=== PATIENT | male | born 1955 | race Caucasian/White ===

== ENCOUNTER 2016-11-16 12:01 | Inpatient (IN) | payer OTHER ==
[2016-11-16] MEDS ORDERED: RX INFO: IV CONTRAST WAS GIVEN 1 EACH MISC MISCELLANE PRN ×2 (12:30→17:51)
[2016-11-16] MEDS ORDERED: SODIUM CHLORIDE 0.9% 500 ML IV ONE (12:30)
--- NOTE | 2016-11-16 12:38 | ED ---
General Adult HPI - General Source: patient, family, RN notes reviewed Mode of arrival: ambulatory Limitations: no limitations <Faraz Humphries - Last Filed: 11/16/16 15:08> <Dev Nolan - Last Filed: 11/16/16 15:11> - General Chief complaint: ENT Stated complaint: Sore throat Time Seen by Provider: 11/16/16 12:24 - History of Present Illness Initial comments: 61-year-old male presents emergency Department with complaints of sore throat, difficulty swallowing. Patient states that he did having more difficulty increased pain the last 3 months. Patient states there is also loss of WEIGHT OVER 20 POUNDS. PATIENT STATES THAT HE IS A HEAVY SMOKER AND CONTINUES TO SMOKE. DENIES ANY CHEST PAIN OR INCREASED SHORTNESS BREATH THIS TIME. PATIENT DENIES FEVER, CHILLS, HEADACHE OR DIZZINESS. PATIENT STATES HE HAS GENERALIZED MALAISE, FATIGUE. PATIENT STATES HE DOES NOT HAVE A PRIMARY CARE PHYSICIAN HAS NOT SEEN ANYBODY FOR THIS. PATIENT STATES SHE ALSO NOTICED CHANGE IN HIS VOICE AND WHEN SHE SOUNDS VERY CONGESTED. (Faraz Humphries) - Related Data Home Medications Medication Instructions Recorded Confirmed No Known Home Medications [No 11/16/16 11/16/16 Known Home Medications] Allergies Allergy/AdvReac Type Severity Reaction Status Date / Time No Known Allergies Allergy Verified 11/16/16 13:13 Review of Systems ROS Other: All systems not noted in ROS Statement are negative. <Faraz Humphries - Last Filed: 11/16/16 15:08> ROS Other: All systems not noted in ROS Statement are negative. <Dev Nolan - Last Filed: 11/16/16 15:11> ROS Statement: Those systems with pertinent positive or pertinent negative responses have been documented in the HPI. Past Medical History Past Medical History: No Reported History History of Any Multi-Drug Resistant Organisms: None Reported Past Surgical History: No Surgical Hx Reported Past Psychological History: No Psychological Hx Reported Smoking Status: Current every day smoker Past Alcohol Use History: Daily Past Drug Use History: Marijuana <Faraz Humphries - Last Filed: 11/16/16 15:08> General Exam Limitations: no limitations General appearance: alert, in no apparent distress, cachectic Head exam: Present: atraumatic, normocephalic, normal inspection Eye exam: Present: normal appearance, PERRL, EOMI. Absent: scleral icterus, conjunctival injection, periorbital swelling ENT exam: Present: mucous membranes moist, TM's normal bilaterally, normal external ear exam. Absent: normal exam, normal oropharynx (Coating noted on the tongue) Neck exam: Present: normal inspection, full ROM. Absent: tenderness, meningismus, lymphadenopathy Respiratory exam: Present: normal lung sounds bilaterally. Absent: respiratory distress, wheezes, rales, rhonchi, stridor Cardiovascular Exam: Present: regular rate, normal rhythm, normal heart sounds. Absent: systolic murmur, diastolic murmur, rubs, gallop, clicks Neurological exam: Present: alert, oriented X3, CN II-XII intact Skin exam: Present: warm, dry, intact, normal color. Absent: rash <Faraz Humphries - Last Filed: 11/16/16 15:08> Course <Faraz Humphries - Last Filed: 11/16/16 15:08> <Dev Nolan - Last Filed: 11/16/16 15:11> Vital Signs 11/16/16 12:17 Temperature 98.9 F Pulse Rate 91 Respiratory 18 Rate Blood Pressure 135/68 O2 Sat by Pulse 98 Oximetry - Reevaluation(s) Reevaluation #1: 11/16/16 15:10 Patient reevaluated by myself, Dr. Nolan. Patient is unable swallow solid food however is able to swallow liquid. No dyspnea. Oral exam is somewhat difficult however tongue does appear elevated on the right side. There does also seems of the right upper neck. Case was discussed in detail with Dr. George, who will admit for medical call. Patient and family updated on results and plan. Consult will be placed for ENT and oncology. (Dev Nolan) Medical Decision Making - Lab Data Result diagrams: 11/16/16 13:00 11/16/16 13:00 <Faraz Humphries - Last Filed: 11/16/16 15:08> - Lab Data Result diagrams: 11/16/16 13:00 11/16/16 13:00 <Dev Nolan - Last Filed: 11/16/16 15:11> - Lab Data Lab Results 11/16/16 11/16/16 11/16/16 Range/Units 13:00 13:00 13:00 WBC 5.9 (3.8-10.6) k/uL RBC 4.24 L (4.30-5.90) m/uL Hgb 13.0 (13.0-17.5) gm/dL Hct 40.8 (39.0-53.0) % MCV 96.2 (80.0-100.0) fL MCH 30.6 (25.0-35.0) pg MCHC 31.8 (31.0-37.0) g/dL RDW 16.3 H (11.5-15.5) % Plt Count 414 (150-450) k/uL Neutrophils % 80 % Lymphocytes % 9 % Monocytes % 8 % Eosinophils % 1 % Basophils % 1 % Neutrophils # 4.7 (1.3-7.7) k/uL Lymphocytes # 0.6 L (1.0-4.8) k/uL Monocytes # 0.5 (0-1.0) k/uL Eosinophils # 0.0 (0-0.7) k/uL Basophils # 0.0 (0-0.2) k/uL Anisocytosis Slight PT 12.1 H (9.0-12.0) sec INR 1.2 (<1.1) APTT 25.6 (22.0-30.0) sec Sodium 147 H (137-145) mmol/L Potassium 4.8 (3.5-5.1) mmol/L Chloride 109 H (98-107) mmol/L Carbon Dioxide 26 (22-30) mmol/L Anion Gap 12 mmol/L BUN 11 (9-20) mg/dL Creatinine 0.80 (0.66-1.25) mg/dL Est GFR (MDRD) Af Amer >60 (>60 ml/min/1.73 sqM) Est GFR (MDRD) Non-Af >60 (>60 ml/min/1.73 sqM) Glucose 84 (74-99) mg/dL Calcium 10.1 (8.4-10.2) mg/dL Disposition <Faraz Humphries - Last Filed: 11/16/16 15:08> <Dev Nolan - Last Filed: 11/16/16 15:11> Clinical Impression: Oral cancer, Esophageal cancer, Dysphagia Disposition: ADMITTED IP TO THIS [facility] Condition: Poor Referrals: None,Stated [Primary Care Provider] - 1-2 days
[2016-11-16 14:40] LABS: Anisocytosis Slight; Basophils % (A) 1 %; CHCM 32.4; Eosinophils % (A) 1 %; HCT 40.8 % (39.0-53.0); HDW 2.52; Luc # (Auto) 0.14; Luc % (Auto) 2; Lymphocytes # (A) 0.6 k/uL (1.0-4.8); Lymphocytes % (A) 9 %; MCH 30.6 pg (25.0-35.0); MCHC 31.8 g/dL (31.0-37.0); MCV 96.2 fL (80.0-100.0); Monocytes # (A) 0.5 k/uL (0-1.0); Monocytes % (A) 8 %; Neutrophils # (A) 4.7 k/uL (1.3-7.7); Neutrophils % (A) 80 %; RBC 4.24 m/uL (4.30-5.90); RDW 16.3 % (11.5-15.5); WBC 5.9 k/uL (3.8-10.6); WBC (Perox) 5.73
--- NOTE | 2016-11-16 14:49 | CT ---
EXAMINATION TYPE: CT neck chest w con DATE OF EXAM: 11/16/2016 2:27 PM COMPARISON: NONE HISTORY: 61-year-old male complains of dysphagia, sore throat, and weight loss. TECHNIQUE: Contiguous axial scanning of the neck and chest performed with IV Contrast, patient inject ed with 100 mL of Omnipaque 300. Coronal/sagittal reconstructions performed. CT DLP: 557.9 mGycm Automated exposure control for dose reduction was used. FINDINGS: NECK: Visualized intracranial structures and orbits and globes appear clear. Cerumen left external auditory canal. Leftward nasal septal deviation. Partial opacification inferior right mastoid air cells. There is opacification of the maxillary sinus es with reactive wolf-osteogenesis and air-fluid levels. Nasopharynx appears clear. However, there is mucosal space abnormality with mucosal space irregularit y and possible soft tissue erosion which extends from the right tonsillar pillar along the medial mar gin of the right pterygoids, and with an irregular soft tissue rind along the base of the right base of the tongue extending inferiorly along the mucosal space down to the level of the right hypopharynx with effacement of the right piriform sinus, distortion and leftward displacement of the epiglottis and leftward displacement of the false cords. This abnormality begins on axial image 64 and extends d own to axial image 40. Abnormal soft tissue extends posteriorly into the carotid space at the level o f the angle of the mandible, axial image 53 measuring up to 5.3 cm AP dimension at this level. Abnorm al soft tissue invades the floor the mouth, axial image 46. Abnormality spans up to 8.2 cm craniocaud al. The true vocal folds appear maintained. The tracheal column is clear. Advanced spondylotic change. There is bulky anterior spondylosis in the cervical spine. CHEST: Patient is cachectic. Heart is normal size without pericardial effusion. Coronary vessel calcifications are present in deloris rkable for coronary disease. Mild atherosclerotic arch calcifications with conventional arch vessel branching anatomy. No thoracic lymphadenopathy seen. Evaluation of the lungs shows emphysema and mild diffuse bronchial wall thickening compatible with br onchitis. No consolidation or pleural effusion. In the visualized upper abdomen, there is either cystic replacement of the left kidney with cysts erasmo suring up to 10.1 cm versus severe hydronephrosis and advanced renal cortical thinning. A 9 mm calcif ication is seen probably in the left renal collecting system. This area is only partially visualized. Bones: No osseous destructive process. Normal variant of the sternal foramina. COMBINED IMPRESSION: NECK: 1. Extensive ulcerating mucosal space neoplasm on the right. This extends superiorly from the tonsill ar pillar down inferiorly into the right piriform sinus region up to 8.2 cm craniocaudal. There is in volvement of the floor of the mouth, right upscale security officer space, and carotid space with distortion and le ftward displacement of the epiglottis and false vocal folds. No airway compromise. CHEST: 1. COPD without acute pulmonary process.
[2016-11-16 14:52] LABS: INR 1.2 (<1.1); Partial Thromboplastin Time 25.6 sec (22.0-30.0); Prothrombin Time 12.1 sec (9.0-12.0)
[2016-11-16 14:53] LABS: Anion Gap 12 mmol/L; Blood Urea Nitrogen 11 mg/dL (9-20); Calcium 10.1 mg/dL (8.4-10.2); Carbon Dioxide 26 mmol/L (22-30); Chloride 109 mmol/L (98-107); Glucose 84 mg/dL (74-99); Non-African American GFR(MDRD) >60 (>60 ml/min/1.73 sqM); Potassium 4.8 mmol/L (3.5-5.1); Sodium 147 mmol/L (137-145)
[2016-11-16] MEDS ORDERED: ONDANSETRON 4 MG/2 ML VIAL IVP PRN (15:09)
[2016-11-16] MEDS ORDERED: NALOXONE 0.4 MG/ML 1 ML VIAL IV PRN (15:09)
[2016-11-16] MEDS ORDERED: LORazepam 2 MG/ML SYRINGE IV PRN (15:09)
[2016-11-16] MEDS: SODIUM CHLORIDE 0.9% 1,000 ML IV SCH (15:49)
--- NOTE | 2016-11-16 17:44 | P.PCN ---
Date of Procedure: 11/16/16 Preoperative Diagnosis: Dysphasia, trismus Postoperative Diagnosis: Same with right tonsillar ulcerative lesion and parapharyngeal mass Procedure(s) Performed: Flexible nasopharyngeal laryngoscopy Anesthesia: none Surgeon: Ravindra Nelson Pathology: none sent Condition: stable Disposition: PACU Indications for Procedure: This patient has over 2 months progressive dysphagia and odontophagia and trismus. A lesion was noted on the right side in the emergency room and the patient's been admitted for evaluation. Patient has lost 20 pounds in the last 2 months. He is unable to keep up with nutritional status. Operative Findings: Patient has a right tonsillar mass with associated parapharyngeal space involvement and trismus Description of Procedure: An EF type GP nasopharyngoscope was placed into the patient's nose with care to avoid any trauma to the nasal mucosa. We followed the floor the nose into the nasopharynx and oropharynx and hypopharynx and did a complete and thorough examination of these areas. The base of tongue [place] cords epiglottis etc. all appeared to be unremarkable. The patient did have an ulcerative lesion of the right tonsillar area with a mass of the parapharyngeal space on the right side., This is suspicious for malignancy.
--- NOTE | 2016-11-16 17:51 | P.GSCN ---
History of Present Illness Consult date: 11/16/16 Reason for Consult: Severe dysphagia and weight loss of 20 pounds in 2 months. Trismus is noted Requesting physician: Brad George History of present illness: This is a 61-year-old white male who has had 2 months of persistent and progressive sore throat, trismus, weight loss and severe dysphasia. The pain is quite intense and is having a hard time swallowing. He is clearly not keeping up with his weight. He now weighs 52 kg. He's lost over 20 pounds in 2 months. He's got a long-standing history of smoking and drinking. He has a [id number] history of smoking and drinks over 5 drinks per day. His pain is located in the right submandibular region with associated trismus and describes the pain as intense L aching but sharp at times and is always present. Made worse by swallowing. Nothing takes the pain away. Review of Systems - Constitutional Reports anorexia, Reports malaise, Reports weakness - EENT Eyes: denies blurred vision, denies bulging eye Ears: right: decreased hearing Ears, nose, mouth and throat: Reports mouth pain, Reports neck fullness/pressure , Reports odynophagia, Reports swelling in mouth - Cardiovascular Denies chest pain - Respiratory Denies congestion - Gastrointestinal Reports loss of appetite, Denies abdominal pain - Genitourinary Denies hematuria - Musculoskeletal Denies fractures - Integumentary Reports dryness, Denies foot/leg ulcers - Neurological Reports balance difficulties, Denies ataxia - Psychiatric Reports change in appetite - Endocrine Denies deepening of the voice - Hematologic/Lymphatic Denies easy bleeding - Allergic/Immunologic Denies allergic rhinitis Past Medical History Past Medical History: No Reported History History of Any Multi-Drug Resistant Organisms: None Reported Past Surgical History: No Surgical Hx Reported Past Psychological History: No Psychological Hx Reported Smoking Status: Current every day smoker Past Alcohol Use History: Daily Past Drug Use History: Marijuana Medications and Allergies Home Medications Medication Instructions Recorded Confirmed Type No Known Home Medications [No 11/16/16 11/16/16 History Known Home Medications] Allergies Allergy/AdvReac Type Severity Reaction Status Date / Time No Known Allergies Allergy Verified 11/16/16 13:13 Surgical - Exam Osteopathic Statement: *. No significant issues noted on an osteopathic structural exam other than those noted in the History and Physical/Consult. Vital Signs Temp Pulse Resp BP Pulse Ox 98.9 F 91 18 135/68 98 11/16/16 12:17 11/16/16 12:17 11/16/16 12:17 11/16/16 12:11/16/16 12:17 - General cachectic, chronically ill - Eyes PERRL, normal ocular movement - ENT Patient has male pattern baldness. Head is normocephalic the face is symmetric. There is no abnormal movements. There is no tenderness to the sinuses are mastoids. There is no nodules or eruptions or parasites on scalp. Your well-formed canals are clear the tympanic membranes are without bulging or retraction. Nose is patent. Mouth and throat-a right tonsillar ulcerative lesion is noted with parapharyngeal involvement. Neck shows some fullness and tenderness to the right submandibular region and region #2 normal pinna, normal nares, normal mucosa - Neck Fullness to the right neck lymphadenopathy is appreciated no masses, no no lymphadectomy - Respiratory normal expansion, clear to percussion - Musculoskeletal normal gait - Psychiatric oriented to time, oriented to person, oriented to place, speech is normal Results - Labs 11/16/16 13:00 11/16/16 13:00 Assessment and Plan (1) Abnormal weight loss Status: Acute (2) Tonsillar mass Status: Acute Plan: This patient has an ulcerative mass of the right tonsil and parapharyngeal region with extension to the pterygoid musculature causing associated trismus. This is very suspicious for possible malignancy. I'm recommending a CAT scan of the neck and chest along with a triple endoscopy and biopsy along with a fine -needle aspiration of this right neck mass. All risks, benefits, and alternative therapies were discussed in detail. Consent was obtained and all questions were answered. I'm also recommending a feeding tube as this patient is unable to keep up with his feedings. We will arrange the triple endoscopy and biopsy on and allow Tuesday to obtain CAT scan imaging dietary consultation and a possible feeding tube. I've explained all this to the patient. All risks, benefits, and alternative therapies regarding the triple endoscopy and feeding tube were discussed. A consent was obtained and all questions were answered. I did tell him that this important that he contact his family to make arrangements for travel and treatment if this indeed comes back as a malignancy. Time with Patient: Greater than 30
[2016-11-16] MEDS: MORPHINE SULFATE 4 MG/ML SYRINGE IV PRN (18:00)
[2016-11-17] MEDS: SODIUM CHLORIDE 0.9% 1,000 ML IV SCH ×2 (05:42→19:47)
--- NOTE | 2016-11-17 08:52 | HP ---
DATE OF ADMISSION: 11/16/2016 CHIEF COMPLAINT: Pain in the throat for three months. HISTORY OF PRESENT ILLNESS: This is the first admission for this 61-year-old white male. He started having a definite sore throat, pain in the neck and difficulty swallowing several months ago. He has lost 20 pounds when he came to the emergency room where he was identified on CAT scan to have a large hypopharyngeal mass. He has had no hemoptysis, he smokes and drinks heavily. REVIEW OF SYSTEMS: He has had no headaches, change in vision or hearing, shortness of breath, hemoptysis, heart disease, hypertension, murmurs, abdominal pain, vomiting, hematemesis, melena, hematochezia, jaundice, hematuria, frequency, urgency, renal disease, diabetes, etc. Past medical history reveals he has had no surgery, allergies and he is not on any medications. Smokes about a pack of cigarettes a day. Admits to 4 or 5 beers a day. PHYSICAL EXAMINATION: VITAL SIGNS: Blood pressure is 111/64 with a pulse of 75, respirations 35 and he is afebrile. GENERAL: He appeared to be chronically ill, dehydration, malnourished and slightly cachectic. HEENT: Head, ears, eyes, nose, mouth, and throat are otherwise normal as well as could be seen. The oral exam was not carried out because it was examined by ENT. He has mass in the right side of the neck. Chest is clear. CARDIAC: Normal sinus rhythm. ABDOMEN: Soft, nontender. EXTREMITIES: Normal. IMPRESSION: 1. Pharyngeal carcinoma, location unknown. 2. Chronic obstructive pulmonary disease. 3. Alcohol abuse. PLAN: 1. Bed rest. 2. IV fluids. 3. ENT consult and then probably have him further evaluated by oncology and radiation therapy. He was told it was likely this neoplasm.
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
[2016-11-17] MEDS: MORPHINE SULFATE 4 MG/ML SYRINGE IV PRN ×2 (10:38→19:45)
--- NOTE | 2016-11-17 16:07 | PN ---
DATE OF SERVICE: 11/17/2016 CHIEF COMPLAINT: Weight loss, pain in the throat, and mass in the right side of the neck. HISTORY OF PRESENT ILLNESS: This gentleman is about the same. He is still uncomfortable. It is planned that he will have a PEG tube placed in the next day or two and then he will undergo biopsy of the throat lesion. PHYSICAL EXAMINATION: Breath sounds are poor. Cardiac exam is normal. Abdomen is soft. IMPRESSION: 1. 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 2. Chronic obstructive pulmonary disease. 3. Alcoholism. PLAN: Await further studies, including biopsy, as well as placement of PEG tube.
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
[2016-11-18] MEDS: SODIUM CHLORIDE 0.9% 1,000 ML IV SCH (00:05)
[2016-11-18] MEDS: MORPHINE SULFATE 4 MG/ML SYRINGE IV PRN ×4 (00:27→22:32)
[2016-11-18] MEDS: LACTATED RINGERS 1,000 ML IV SCH ×2 (02:21→12:36)
[2016-11-18] MEDS ORDERED: DEXAMETHASONE SOD PHOS (MDV) 100 MG/10 ML VIAL ONE (08:44)
[2016-11-18] MEDS ORDERED: LIDOCAINE 1% INJ 10MG/ML (20 ML MDV) ONE (08:44)
[2016-11-18] MEDS ORDERED: fentaNYL (PF) 50 MCG/ML 2 ML AMP ONE (08:44)
[2016-11-18] MEDS ORDERED: PHENYLEPHRINE-0.9% NACL SYG 1 MG/10 ML SYRINGE ONE (08:44)
[2016-11-18] MEDS ORDERED: MIDAZOLAM 2 MG/2 ML VIAL ONE (08:44)
[2016-11-18] MEDS ORDERED: PROPOFOL 10 MG/ML 20 ML VIAL IV ONE (08:44)
[2016-11-18] MEDS ORDERED: SUCCINYLCHOLINE CHLORIDE VIAL 200 MG/10 ML VIAL IV ONE (08:44)
[2016-11-18] MEDS ORDERED: IV FLUID CONTINUATION 1,000 ML IV ONE (17:21)
[2016-11-18] MEDS ORDERED: ONDANSETRON 4 MG/2 ML VIAL IVP ONE (18:13)
[2016-11-18] MEDS ORDERED: DEXAMETHASONE SOD PHOS (MDV) 100 MG/10 ML VIAL IVP ONE (18:16)
--- NOTE | 2016-11-18 19:35 | P.OP ---
Date of Procedure: 11/18/16 Preoperative Diagnosis: 8.2 cm right oral pharyngeal mass i.e. retromolar trigone with extension into the soft palate and base of tongue involving the mandible Postoperative Diagnosis: Same Procedure(s) Performed: Direct microscopic laryngoscopy and biopsy Anesthesia: REX Surgeon: Ravindra Nelson Estimated Blood Loss (ml): 10 Pathology: other (Right throat mass) Condition: stable Disposition: PACU Indications for Procedure: This patient presented with dysphagia and trismus. He was found to have a large mass of the right oral pharyngeal region. Biopsy is recommended. Direct microscopic laryngoscopy is recommended. He scheduled for a computed tomography scan of the chest so therefore we decided to proceed forward with just a laryngoscopy and biopsy. Operative Findings: Patient has a large 8 cm mass which appears to have started in the retromolar trigone region and has extended into the base of the tongue superiorly into the soft palate and is in close approximation with the mandible. This is a very large bulky tumor. Description of Procedure: This patient underwent a general inhalation anesthetic and a Jako laryngoscope was placed in the patient's mouth with care to avoid any trauma to the gums. A gum guard was placed. The Jako laryngoscope was inserted and the patient's mouth with care to avoid any trauma to the lips or gums. The entire oropharynx and hypopharynx was evaluated. Reevaluated the base the tongue [place] cords piriform sinus lateral pharynx etc. This patient has and alternative mass extending from the soft palate down along the retromolar trigone area into the base of tongue. This most likely started in either the tonsil or the retromolar trigone region. Resembled a squamous cell carcinoma. Biopsies were taken and instrumentation was removed. The patient tolerated this well. We're awaiting the results of the pathology report.
[2016-11-19] MEDS: MORPHINE SULFATE 4 MG/ML SYRINGE IV PRN ×5 (01:48→23:36)
--- NOTE | 2016-11-19 07:19 | PN ---
CHIEF COMPLAINT: ( ) of the tonsil. HISTORY OF PRESENT ILLNESS: This gentleman is doing reasonably well, but he is still having a lot of discomfort in his throat. He is going down for a biopsy today. PHYSICAL EXAM: He remains asthenic and chronically ill in appearance. Chest is fairly clear and breath sounds are heard on both sides. Cardiac exam is normal. IMPRESSION: 1. Cancer of the tonsil. 2. Chronic obstructive pulmonary disease. PLAN: 1. Biopsy of the lesion today. 2. Make sure he is evaluated by hematology/oncology and radiation therapy. 3. He should be placed on an inpatient status.
[2016-11-19 09:02] LABS: Anion Gap 9 mmol/L; Blood Urea Nitrogen 8 mg/dL (9-20); Calcium 9.4 mg/dL (8.4-10.2); Carbon Dioxide 26 mmol/L (22-30); Chloride 108 mmol/L (98-107); Glucose 125 mg/dL (74-99); Non-African American GFR(MDRD) >60 (>60 ml/min/1.73 sqM); Potassium 4.4 mmol/L (3.5-5.1); Sodium 143 mmol/L (137-145)
[2016-11-19] MEDS: SODIUM CHLORIDE 0.9% 1,000 ML IV SCH ×3 (10:37→23:42)
[2016-11-19] MEDS: LACTATED RINGERS 1,000 ML IV SCH (10:39)
[2016-11-19] MEDS ORDERED: ceFAZolin 2 GM in SODIUM CHLORIDE 0.9% 100 ML IVPB ONE (11:00)
[2016-11-19] MEDS ORDERED: GLYCOPYRROLATE 0.2 MG/ML 2 ML VIAL ONE (12:50)
[2016-11-19] MEDS ORDERED: PROPOFOL 10 MG/ML 20 ML VIAL IV ONE (12:50)
[2016-11-19] MEDS ORDERED: LIDOCAINE 1% INJ 10MG/ML (20 ML MDV) ONE (12:50)
[2016-11-19] MEDS ORDERED: IV FLUID CONTINUATION 900 ML IV ONE (13:01)
--- NOTE | 2016-11-19 13:20 | P.PCN ---
Date of Procedure: 11/19/16 Procedure(s) Performed: Brief history: Patient is a 61-year-old white male, scheduled for an EGD with PEG tube placement today. He was diagnosed with tonsillar mass for which she underwent direct laryngoscopy with biopsies yesterday. The patient has been complaint of dysphagia and able to swallow liquids and soft diet. Procedure performed: EGD with PEG tube placement Preoperative diagnosis: Recently diagnosed tonsillar cancer, PEG tube placement for nutrition IV sedation by anesthesia Procedure: After informed consent was obtained with the patient as well as the family the patient was brought into the endoscopy unit. IV conscious sedation was administered by anesthesia under continuous monitoring. The Olympus GF 160 video endoscope was inserted into the mouth and there was a large tonsillar mass identified. The scope was advanced into the pyriform sinus and esophagus intubated without any difficulty and was gradually advanced to the stomach and duodenum. The bulb and second part of the duodenum was visualized which appeared normal. The scope at this time was withdrawn to the stomach adequately insufflated with air. Adequate transillumination was achieved onto the anterior abdominal wall. At the site of adequate transillumination and maximal finger indentation, on the anterior abdominal wall, this area was sterilely prepped and draped. One percent Xylocaine was infiltrated into the skin and a small incision was made. Trocar and cannula was passed through the incision into the stomach cavity. The trocar was removed. Guidewire was passed through the cannula into the stomach cavity which was held by the snare that was passed through the scope. The guidewire along with the scope was gently withdrawn from the stomach esophagus out of the mouth. A 20-[employer] PEG tube was passed over the guidewire and was gently advanced into the mouth and esophagus and stomach. With gentle traction the guidewire along with the PEG tube was pulled from the anterior abdominal wall until the internal bumper appeared to be in secure position. Repeat EGD was performed and the esophagus intubated without any difficulty and was advanced into the stomach. The internal bumper appeared to be in secure position. The visualized portions of the antrum body cardia and fundus of the stomach appeared normal. The esophagus was carefully examined as the scope was gradually being withdrawn which appeared normal. At this time external bumper was placed on the PEG tube closer to the anterior abdominal wall at 3 cm gigi. The patient tolerated the procedure well. Impression: Successful 20-[employer] PEG tube placement as described above. Large tonsillar mass. Recommendations: Findings of this examination were discussed with the patient's family. The patient will be started on tube feeds tomorrow. Post-PEG tube orders were written.
--- NOTE | 2016-11-19 14:15 | PN ---
CHIEF COMPLAINT: CA of the right tonsil. HISTORY OF PRESENT ILLNESS: The gentleman is going down today for a PEG tube. PHYSICAL EXAM: Difficult to understand and he swelling and pain in the neck particularly on the right. Breath sounds are diminished throughout. IMPRESSION: Cancer of the right tonsil. PLAN: 1. PEG tube today. 2. Start making arrangements for discharge and follow up for possible treatment modalities.
[2016-11-20] MEDS: MORPHINE SULFATE 4 MG/ML SYRINGE IV PRN ×4 (06:30→20:33)
--- NOTE | 2016-11-20 10:13 | PN ---
DATE OF SERVICE: 11/20/2016 The patient is a 61-year-old white male who was diagnosed with tonsillar cancer and he presents with dysphagia 2 days ago. He underwent an upper endoscopy with a PEG tube placement yesterday and this morning he is feeling better. He denies any abdominal pain. He reports no nausea and vomiting. Presently on clear liquid diet, tolerating well. On physical examination, he appears comfortable in no apparent distress. Vital signs are stable. Blood pressure is 146/71, pulse is 76, temperature 98.1. HEENT examination unremarkable. Conjunctivae pink. Sclerae anicteric. Oral cavity, no lesions. NECK: No JVD or lymph node enlargement. Chest was clear to auscultation. HEART: Regular rate and rhythm. ABDOMEN: Soft. Bowel sounds are positive. The PEG tube appears to be in good position and there is no induration around the PEG site, it is nontender. EXTREMITIES: No pedal edema. SKIN: No rashes. NEURO: Alert and oriented x3. No focal deficits. IMPRESSION: 1. Recently diagnosed tonsillar cancer. 2. Dysphagia, status post EGD with PEG tube placement yesterday. The patient doing well. RECOMMENDATIONS: 1. Continue with a clear liquid diet. 2. We can start using the PEG tube for feeds from today as per dietary recommendations.
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
--- NOTE | 2016-11-20 13:12 | PN ---
CHIEF COMPLAINT: CA of the throat. HISTORY OF PRESENT ILLNESS: This gentleman had his PEG tube placed yesterday. He is doing fairly well. He will be ready for discharge the first of the week. PHYSICAL EXAM: Breath sounds are heard on both sides. Cardiac exam is normal. ABDOMEN: Soft, nontender. PEG tube is in place. IMPRESSION: 1. Cancer of the right tonsil. 2. Chronic obstructive pulmonary disease. PLAN: Keep working on discharge. Make sure that he is seen by Oncology and Radiation Therapy.
[2016-11-20] MEDS: LACTATED RINGERS 1,000 ML IV SCH (13:37)
[2016-11-20] MEDS: SODIUM CHLORIDE 0.9% 1,000 ML IV SCH (13:37)
[2016-11-21] MEDS: MORPHINE SULFATE 4 MG/ML SYRINGE IV PRN ×5 (00:27→21:52)
[2016-11-21 01:27] LABS: Glucose,Whole Blood 109 mg/dL (75-99)
[2016-11-21] MEDS: SODIUM CHLORIDE 0.9% 1,000 ML IV SCH ×2 (03:00→16:52)
[2016-11-21 06:34] LABS: Glucose,Whole Blood 117 mg/dL (75-99)
[2016-11-21] MEDS: LACTATED RINGERS 1,000 ML IV SCH ×2 (08:32→16:53)
[2016-11-21 12:13] LABS: Glucose,Whole Blood 128 mg/dL (75-99)
[2016-11-21 18:25] LABS: Glucose,Whole Blood 123 mg/dL (75-99)
--- NOTE | 2016-11-21 20:29 | PN ---
DATE OF SERVICE: 11/21/2016 CHIEF COMPLAINT: Carcinoma of the tonsils. HISTORY OF PRESENT ILLNESS: This gentleman is doing fairly well, but he still has some discomfort. His PEG tube has been placed and we will start using this. PHYSICAL EXAMINATION: Breath sounds are heard in both sides and cardiac exam is normal. IMPRESSION: 1. Carcinoma of the tonsil. 2. Chronic obstructive pulmonary disease. PLAN: Work on discharge plan including palliative treatment for his malignancy.
[2016-11-22 00:16] LABS: Glucose,Whole Blood 119 mg/dL (75-99)
[2016-11-22] MEDS: MORPHINE SULFATE 4 MG/ML SYRINGE IV PRN ×3 (02:43→13:21)
[2016-11-22 05:44] LABS: Glucose,Whole Blood 135 mg/dL (75-99)
[2016-11-22] MEDS: SODIUM CHLORIDE 0.9% 1,000 ML IV SCH (08:41)
[2016-11-22 08:47] VITALS: BP 142/62; PULSE 89; RESP 20; TEMP 97
[2016-11-22 11:25] LABS: Glucose,Whole Blood 129 mg/dL (75-99)
[2016-11-22 13:15] VITALS: BMI 18.1
--- NOTE | 2016-11-22 14:24 | P.DS ---
Providers Date of admission: 11/16/16 15:11 Expected date of discharge: 11/22/16 Attending physician: Brad George Consults: 11/16/16 17:57 Consult Physician Routine Consulting Provider: Cesar Martinez Consult Reason/Comments: Right tonsil mass, dysphagia, 20 pound weight loss, needs feeding tube Do you want consulting provider notified?: Yes 11/19/16 15:48 Consult Physician Routine Consulting Provider: Andry Deleon Consult Reason/Comments: Head and neck cancer Do you want consulting provider notified?: Yes Primary care physician: Stated None Hospital Course: A 61-year-old looking older than stated age presented to the emergency room for chief complaint of a sore throat difficult time swallowing stated it been going on for the past 3 months additionally patient reported having a weight loss of 20 pounds unintentional. Patient states is a heavy smoker and continues to smoke. Also patient states he drinks alcohol daily 4-5 years daily Patient stated he also noted a change in his voice. Patient was admitted to the services of the attending with an ears nose and throat consultation obtained An EF type GP nasopharyngoscope was placed into the patient's nose with care to avoid any trauma to the nasal mucosa. We followed the floor the nose into the nasopharynx and oropharynx and hypopharynx and did a complete and thorough examination of these areas. The base of tongue [place] cords epiglottis etc. all appeared to be unremarkable. The patient did have an ulcerative lesion of the right tonsillar area with a mass of the parapharyngeal space on the right side., This is suspicious for malignancy. This was done by Dr. Kamara CT neck chest with contrast reported extensive ulcerating mucosal neoplasm on the right with involvement of the floor of the mouth right masticate her's is an carotid space with distortion and leftward displacement of the epiglottis and false focal cords. No airway compromise. Patient is only able to tolerate liquids sparingly. Unable to tolerate solids. Denies hematemesis hematochezia or melena. No history of EGD. No history of peptic ulcer disease. No history of dysphagia. Consultation requested for PEG tube insertion for continuance of nutrition support considering circumstances regarding right tonsillar mass. He is scheduled for triple endoscopy with biopsy tomorrow with ENT. Dr. Ramirez did see patient as well recommendations reviewed noted and appreciated. They recommended palliative radiation Dr. Pako Burton did see the patient the gearcase assembler recommended the patient be evaluated for subacute rehab patient was refusing to go to the the rehab unit. Patient was adamant that he be discharged home care was set up to participate in the plan of care Impression discharge diagnosis PEG tube placement for nutritional support for recent diagnosis of tonsillar cancer placed on November 19 Dysphasia suspect due to left tonsillar mass (1) Dysphagia Narrative/Plan: Mechanical obstruction secondary to tonsillar mass neoplasm Status: Acute (2) Protein-calorie malnutrition, moderate Narrative/Plan: Suspect moderate to severe protein calorie malnutrition with BMI of 18.6 profound weight loss more than 20% and suspected inadequate protein intake. Status: Acute (3) Abnormal weight loss Status: Acute (4) Tonsillar mass Status: Acute Chronic alcoholism daily consumption Significant nicotine dependency greater than a 40 year history 1 pack a day with probable COPD undiagnosed The above dictated assessment and findings were discussed with dr george . Impression and the plan of care have been dictated as directed. Palmira Wilkes nurse practitioner acting as a scribe for dr george Patient Condition at Discharge: Poor Plan - Discharge Summary Discharge Medication List No Known Home Medications [No Known Home Medications] 11/16/16 [History] Follow up Appointment(s)/Referral(s): [facility], [[facility]STAFF] - 1 Week None,Stated [Primary Care Provider] - 1-2 days [facility], [REFERRING] - 1 Week Brad George MD [STAFF PHYSICIAN] - 11/24/16 Prakash Ramirez MD [STAFF PHYSICIAN] - 1 Week Activity/Diet/Wound Care/Special Instructions: [facility] for tube feedings. Tube Feeding instructions.Jevity 1.5 @ 60 ml /hr with 130 ml water flushes 6 times/day Discharge Disposition: HOME WITH HOME HEALTH SERVICES
--- NOTE | 2016-11-23 18:01 | PN ---
CHIEF COMPLAINT: Carcinoma of the tonsil. HISTORY OF PRESENT ILLNESS: The gentleman is doing fairly well. PEG tube is in. Patient is still complaining of quite a bit of pain in the neck. PHYSICAL EXAMINATION: Color is poor. Hydration is about the same. Chest is clear. Cardiac exam is normal. IMPRESSION: 1. Carcinoma of the tonsil. 2. Chronic obstructive pulmonary disease. PLAN: Work on a discharge plan; it may be today.
== END 2016-11-22 18:05 | disposition home health service (06) | DRG 146 ==
LOC: EC 12:01 → 5MS5E 15:11 → INTOOBSV 15:11 → OBSVTOIN 15:11 → 5MS5E 16:49
PROVIDERS: ADMIT Family Medicine; ATTEND Family Medicine
PROC: 0CJS8ZZ Inspection of Larynx, Via Natural or Artificial Opening Endoscopic (ICD-10-PCS; 2016-11-16)
PROC: 0CBS8ZX Excision of Larynx, Via Natural or Artificial Opening Endoscopic, Diagnostic (ICD-10-PCS; 2016-11-18)
PROC: 0DH63UZ Insertion of Feeding Device into Stomach, Percutaneous Approach (ICD-10-PCS; principal; 2016-11-19 10:30)
PROC: 3E0G76Z Introduction of Nutritional Substance into Upper GI, Via Natural or Artificial Opening (ICD-10-PCS; 2016-11-20)
DX: C09.9 Malignant neoplasm of tonsil, unspecified (principal); E43 Unspecified severe protein-calorie malnutrition; R64 Cachexia; R13.10 Dysphagia, unspecified; E86.0 Dehydration; Z68.1 Body mass index [BMI] 19.9 or less, adult; R59.0 Localized enlarged lymph nodes; R93.422 Abnormal radiologic findings on diagnostic imaging of left kidney; F10.20 Alcohol dependence, uncomplicated; M19.90 Unspecified osteoarthritis, unspecified site; R47.02 Dysphasia; J44.9 Chronic obstructive pulmonary disease, unspecified; R25.2 Cramp and spasm; F12.90 Cannabis use, unspecified, uncomplicated; R53.1 Weakness; F17.210 Nicotine dependence, cigarettes, uncomplicated; Z82.49 Family history of ischemic heart disease and other diseases of the circulatory system; Z80.0 Family history of malignant neoplasm of digestive organs; Z71.3 Dietary counseling and surveillance; Z86.69 Personal history of other diseases of the nervous system and sense organs; Z87.828 Personal history of other (healed) physical injury and trauma
CPT/HCPCS: 36415; 43246; 70491; 71260; 80048; 84134; 85025; 85610; 85730; 88305; 96360; 96361; 99285

== ENCOUNTER → 2016-11-27 | Outpatient (CLI) | payer OTHER ==
--- NOTE | 2016-11-29 11:26 | PE ---
EXAMINATION TYPE: PET CT fusion skull to thigh DATE OF EXAM: 11/27/2016 3:03 PM COMPARISON: CT neck and chest November 16, 2016. HISTORY: Head and neck cancer initial staging study. TECHNIQUE: Following the intravenous administration of 13.16 mCi of F-18 FDG, whole body images are performed from the skull base to the midthigh. Images are reviewed on the computer in the coronal, a xial, and sagittal planes. Reconstructed rotating images are created on independent workstation and reviewed on the computer. A CT is performed in conjunction with the PET scan. Dedicated neck imagin g is acquired. SCAN: Initial Scan FINDINGS: SKULL BASE AND NECK: Abnormal hypermetabolic uptake begins cranially on axial image 34 at level of n asopharynx in the right neck laterally extending inferiorly to axial image 62 just below hyoid bone a t level of false focal cords or level of superior border of thyroid cartilage. This confluent area of abnormal hypermetabolic uptake measures approximately 5.2 x 3.3 cm on axial image 54 with mass effec t causing airway deviation to left of midline. Craniocaudal length is roughly 8.5 cm. Involvement of right floor of mouth, piriform sinus, production painter space and carotid space are all redemonstrated. Find ing consistent with large area of neoplasm. CHEST, MEDIASTINUM, AND HILAR REGION: There is prominent 7 x 6 mm right paratracheal lymph node on ax ial image 88 . There are additional prominent bilateral hilar and subcarinal lymph nodes with some in creased hypermetabolic uptake noted. Max SUV is between 2-3 suggesting most likely inflammatory or gr anulomatous etiology. ABDOMEN AND PELVIS: No suspicious hypermetabolic uptake is seen in the abdomen or pelvis. OSSEOUS STRUCTURES: No suspicious hypermetabolic uptake is seen in osseous structures. OTHER CT: There is near complete opacification of left maxillary sinus. There is dependent air-fluid level in right maxillary sinus. There is moderate calcified atherosclerotic plaque in bilateral carotid bulbs. There is three-vessel coronary artery disease. There is background mild to moderate emphysematous reza nge. There is PEG tube noted. There is severe left-sided hydronephrosis with marked cortical thinning. No excretion from left kidne y of PET material is noted. Bilateral renal calculi are suspected. There is prominent rectal fecalith. There is moderate calcified atherosclerotic change of aorta and pelvic branch vessels on axial image 220. IMPRESSION: 1. Large right-sided confluent neoplasm as detailed above. No metastatic malignancy identified. 2. Severe left-sided hydronephrosis with suspected nonfunctioning left kidney. Bilateral renal calcul i suspected. Clinical correlation advised to help determine need for further workup. 3. Severe rectal fecal stasis or fecalith. No bowel obstruction.
== END | disposition home or self-care (01) ==
LOC: RADPETMAIN 11:52
PROVIDERS: ATTEND Internal Medicine Hematology & Oncology
DX: C06.9 Malignant neoplasm of mouth, unspecified (principal); N13.30 Unspecified hydronephrosis; K59.8 Other specified functional intestinal disorders
CPT/HCPCS: 78815; A9552

== ENCOUNTER 2017-02-23 11:34 | Inpatient (IN) | payer OTHER ==
[2017-02-23] MEDS ORDERED: SODIUM CHLORIDE 0.9% 500 ML IV STA (11:41)
[2017-02-23 11:59] LABS: Glucose,Whole Blood 245 mg/dL (75-99)
[2017-02-23 12:16] LABS: Anisocytosis Slight; Basophils # (A) 0.1 k/uL (0-0.2); Basophils % (A) 0 %; CH 31.2; CHCM 30.9; Eosinophils % (A) 0 %; HCT 27.6 % (39.0-53.0); HDW 2.79; HGB 8.6 gm/dL (13.0-17.5); Hypochromasia Moderate; Luc # (Auto) 0.31; Luc % (Auto) 1; Lymphocytes # (A) 0.3 k/uL (1.0-4.8); Lymphocytes % (A) 1 %; MCH 31.4 pg (25.0-35.0); MCV 101.3 fL (80.0-100.0); Macrocytosis Moderate; Mean Platelet Volume 8.3; Monocytes # (A) 1.5 k/uL (0-1.0); Monocytes % (A) 6 %; Neutrophils # (A) 21.4 k/uL (1.3-7.7); Neutrophils % (A) 91 %; RBC 2.73 m/uL (4.30-5.90); RDW 19.1 % (11.5-15.5); WBC 23.6 k/uL (3.8-10.6); WBC (Perox) 25.78
[2017-02-23] MEDS ORDERED: IPRATROPIUM-ALBUTEROL 3 ML NEB INHALATION STA ×2 (12:17→12:58)
[2017-02-23 12:26] LABS: ALT 23 U/L (21-72); AST 19 U/L (17-59); Alkaline Phosphatase 90 U/L (38-126); Anion Gap 18 mmol/L; Blood Urea Nitrogen 14 mg/dL (9-20); Calcium 9.4 mg/dL (8.4-10.2); Carbon Dioxide 18 mmol/L (22-30); Chloride 97 mmol/L (98-107); Glucose 252 mg/dL (74-99); Non-African American GFR(MDRD) >60 (>60 ml/min/1.73 sqM); Potassium 5.1 mmol/L (3.5-5.1); Sodium 133 mmol/L (137-145); Total Bilirubin 0.5 mg/dL (0.2-1.3)
[2017-02-23] MEDS ORDERED: DEXAMETHASONE SOD PHOSPHATE 10 MG/ML 1 ML VIAL IV STA (12:26)
--- NOTE | 2017-02-23 12:26 | XR ---
EXAMINATION TYPE: XR chest 1V portable DATE OF EXAM: 02/23/2017 COMPARISON: NONE HISTORY: Bleeding TECHNIQUE: Single frontal view of the chest is obtained. FINDINGS: Hyperinflation suggests COPD. Atherosclerotic change of the aorta. Prominent pulmonary art mich suggests pulmonary arterial hypertension. No pneumothorax. Diffuse osteopenia. Chronic rib deform ity on the right suggestive of remote trauma. No obvious pneumothorax. Artifact overlies the lower ch est. IMPRESSION: 1. No acute process correlate for COPD.
[2017-02-23 13:00] LABS: INR 1.4 (<1.2); Partial Thromboplastin Time 23.6 sec (22.0-30.0); Prothrombin Time 13.9 sec (9.0-12.0)
[2017-02-23] MEDS ORDERED: TRANEXAMIC ACID 1,000 MG in SODIUM CHLORIDE 0.9% 100 ML IV STA (13:43)
[2017-02-23] MEDS ORDERED: TRANEXAMIC ACID 1,000 MG in SODIUM CHLORIDE 0.9% 250 ML IV ONE (13:43)
[2017-02-23] MEDS ORDERED: RX INFO: IV CONTRAST WAS GIVEN 1 EACH MISC MISCELLANE PRN (14:36)
--- NOTE | 2017-02-23 15:28 | CT ---
EXAMINATION TYPE: CT soft tissue neck w con DATE OF EXAM: 02/23/2017 3:13 PM COMPARISON: CT neck 11/16/2016 HISTORY: Oral/throat bleeding. History of throat cancer. CT DLP: 480.00 mGycm Automated exposure control for dose reduction was used. CONTRAST: CT scan of the neck is performed following with IV Contrast, patient injected with 100 mL of Omnipaqu e 300. Axial images are obtained, coronal and sagittal reformatted images are reviewed. FINDINGS: Airway: There is extensive inflammatory change in the bilateral maxillary sinuses. Mastoid air cells show inflammatory change on the right. Ethmoids also show some mild inflammatory change. Skull base i s normal. The airway is patent. Epiglottis shows some mild thickening. Parotid/submandibular glands: No gross abnormality seen. Carotid/Vascular Structures: Atheromatous changes are present along the distribution of the carotid a rteries especially at the bifurcations. Cerebral vascular calcifications noted incidentally. Osseous Structures: Hypertrophic changes are present in the cervical spine, there is multilevel degen erative disc disease and spurring, foraminal encroachment. Other: The abnormal fluid collection seen on previous exam, prominence at the base of the tongue on t he right soft tissue extending posteriorly is seen however the fluid collection has resolved. There i s an air collection at this level and there is abnormal soft tissue thickening also present. The kobe ent is cachectic, there is loss of normal fat planes. IMPRESSION: There is some improvement in the abnormal soft tissue and possible necrotic focus seen o n prior exam, persistent abnormal soft tissue compatible with ulceration, abnormal pharyngeal mucosal space density likely related to patient's known tumor. There is maxillary sinus disease, correlate f or mastoiditis.
[2017-02-23] MEDS ORDERED: NALOXONE 0.4 MG/ML 1 ML VIAL IV PRN (16:11)
[2017-02-23 16:27] LABS: Appearance,Urine Cloudy (Clear); Bacteria,Urine Rare /hpf; Bilirubin,Urine Negative (Negative); Glucose,Urine (UA) Negative (Negative); Hyphae Yeast, Urine Rare /hpf; Ketones,Urine Negative (Negative); Leukocyte Esterase,Urine Small (Negative); Mucus,Urine Rare /hpf; Nitrite,Urine Negative (Negative); PH, Urine 5.5 (5.0-8.0); Particle Count 8178; Protein,Urine 1+ (Negative); RBC,Urine 34 /hpf (0-5); Specific Gravity,Urine 1.041 (1.001-1.035); Sperm,Urine Rare /hpf; UA Billing (MACRO vs. MICRO) MICRO; Urobilinogen,Urine <2.0 mg/dL (<2.0); WBC,Urine 78 /hpf (0-5)
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
[2017-02-23 17:20] LABS: Anisocytosis Slight; Basophils % (A) 0 %; CHCM 32.6; Eosinophils % (A) 0 %; HCT 25.9 % (39.0-53.0); HDW 3.41; HGB 8.5 gm/dL (13.0-17.5); Hypochromasia Slight; Luc # (Auto) 0.08; Luc % (Auto) 0; Lymphocytes # (A) 0.1 k/uL (1.0-4.8); Lymphocytes % (A) 1 %; MCH 30.5 pg (25.0-35.0); MCHC 32.9 g/dL (31.0-37.0); Macrocytosis Slight; Mean Platelet Volume 7.1; Monocytes # (A) 0.5 k/uL (0-1.0); Monocytes % (A) 3 %; Neutrophils # (A) 18.8 k/uL (1.3-7.7); Neutrophils % (A) 96 %; Poikilocytosis Slight; RBC 2.79 m/uL (4.30-5.90); RDW 19.1 % (11.5-15.5); WBC 19.5 k/uL (3.8-10.6); WBC (Perox) 20.25
[2017-02-23 17:23] LABS: MCV 92.7 fL (80.0-100.0)
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
[2017-02-23 20:26] LABS: Glucose,Whole Blood 172 mg/dL (75-99)
[2017-02-23] MEDS: IPRATROPIUM-ALBUTEROL 3 ML NEB INHALATION SCH (20:40)
--- NOTE | 2017-02-23 22:10 | XR ---
EXAMINATION TYPE: XR chest 1V DATE OF EXAM: 02/23/2017 CLINICAL HISTORY: Cough progress study. TECHNIQUE: Single AP portable upright view of the chest is obtained. COMPARISON: Chest x-ray from earlier today FINDINGS: Underlying emphysematous change is redemonstrated. There is no suspicious new focal airspa ce opacity, pleural effusion, or pneumothorax seen bilaterally. Cardiac silhouette size is within nor mal limits with atherosclerotic thoracic aorta. Osseous structures are demineralized. IMPRESSION: Overall stable findings, chronic emphysematous change without suspicious acute infiltra te clearly seen.
[2017-02-24 00:01] LABS: Glucose,Whole Blood 170 mg/dL (75-99)
[2017-02-24] MEDS: INSULIN LISPRO (humaLOG) 300 UNIT/3 ML VIAL SQ SCH ×4 (01:45→18:40)
[2017-02-24] MEDS: DEXTROSE 5%-0.45% NACL 1,000 ML IV SCH ×2 (01:45→05:22)
[2017-02-24 05:31] LABS: Anisocytosis Slight; Basophils % (A) 0 %; CH 30.2; CHCM 32.4; Eosinophils % (A) 0 %; HDW 3.46; HGB 8.4 gm/dL (13.0-17.5); Hypochromasia Slight; Luc # (Auto) 0.19; Luc % (Auto) 2; Lymphocytes # (A) 0.2 k/uL (1.0-4.8); Lymphocytes % (A) 1 %; MCH 29.5 pg (25.0-35.0); MCHC 31.2 g/dL (31.0-37.0); MCV 94.3 fL (80.0-100.0); Macrocytosis Slight; Monocytes # (A) 0.6 k/uL (0-1.0); Monocytes % (A) 5 %; Neutrophils # (A) 11.9 k/uL (1.3-7.7); Neutrophils % (A) 93 %; Poikilocytosis Slight; RBC 2.86 m/uL (4.30-5.90); RDW 19.9 % (11.5-15.5); WBC 12.8 k/uL (3.8-10.6); WBC (Perox) 13.42
[2017-02-24 05:36] LABS: INR 1.3 (<1.2); Partial Thromboplastin Time 24.7 sec (22.0-30.0); Prothrombin Time 12.9 sec (9.0-12.0)
[2017-02-24 05:46] LABS: ALT 27 U/L (21-72); AST 14 U/L (17-59); Alkaline Phosphatase 68 U/L (38-126); Anion Gap 8 mmol/L; Blood Urea Nitrogen 18 mg/dL (9-20); Carbon Dioxide 22 mmol/L (22-30); Chloride 104 mmol/L (98-107); Glucose 141 mg/dL (74-99); Magnesium 1.9 mg/dL (1.6-2.3); Non-African American GFR(MDRD) >60 (>60 ml/min/1.73 sqM); Phosphorous 4.2 mg/dL (2.5-4.5); Potassium 4.7 mmol/L (3.5-5.1); Sodium 134 mmol/L (137-145); Total Bilirubin 0.8 mg/dL (0.2-1.3); Total Protein 5.1 g/dL (6.3-8.2)
[2017-02-24 05:50] LABS: Glucose,Whole Blood 175 mg/dL (75-99)
[2017-02-24] MEDS ORDERED: Magnesium Replacement Protocol 1 EACH MISC MISCELLANE PRN (05:56)
[2017-02-24] MEDS: MAGNESIUM SULFATE-D5W PMX 1 GM in DEXTROSE/WATER 1 100ML.BAG IVPB SCH ×2 (06:37→08:23)
[2017-02-24] MEDS: IPRATROPIUM-ALBUTEROL 3 ML NEB INHALATION SCH ×4 (07:11→19:11)
--- NOTE | 2017-02-24 09:11 | XR ---
EXAMINATION TYPE: XR chest 1V DATE OF EXAM: 02/24/2017 COMPARISON: 02/23/2017 HISTORY: Abnormal x-ray TECHNIQUE: Single frontal view of the chest is obtained. FINDINGS: Hyperinflation suggests COPD. Chronic rib deformities are noted. No pneumothorax. No inter stitial edema. No pleural effusion IMPRESSION: 1. Correlate for COPD.
[2017-02-24] MEDS: PANTOPRAZOLE 40 MG/10 ML VIAL IV SCH (09:40)
[2017-02-24] MEDS ORDERED: MIDAZOLAM 2 MG/2 ML VIAL ONE (11:02)
[2017-02-24] MEDS ORDERED: IV FLUID CONTINUATION 1,000 ML IV ONE (11:02)
[2017-02-24] MEDS ORDERED: LIDOCAINE 1% INJ 10MG/ML (20 ML MDV) ONE (11:02)
[2017-02-24] MEDS ORDERED: PROPOFOL 10 MG/ML 20 ML VIAL IV ONE (11:02)
[2017-02-24] MEDS ORDERED: fentaNYL (PF) 50 MCG/ML 2 ML AMP ONE (11:02)
[2017-02-24] MEDS ORDERED: SODIUM CHLORIDE 0.9% 50 ML with ceFAZolin 1,000 MG IV ONE ×2 (11:21)
[2017-02-24] MEDS ORDERED: LIDOCAINE 2%-EPI 1:100,000 20 ML VIAL SQ ONE ×2 (11:30)
[2017-02-24] MEDS ORDERED: BUPIVACAIN-EPI 0.5%-1:200,000 30 ML VIAL SQ ONE ×2 (11:30)
[2017-02-24] MEDS ORDERED: LACTATED RINGERS 1,000 ML IV ONE (11:50)
[2017-02-24 12:14] LABS: Glucose,Whole Blood 266 mg/dL (75-99)
--- NOTE | 2017-02-24 12:18 | CDI ---
In responding to this query, please exercise your independent professional judgment. The [facility] Coding Staff and Clinical Documentation Specialists appreciate your assistance in clarifying documentation, maintaining compliance with coding guidelines, accurately documenting patients condition and capturing severity of illness. The fact that a question is asked does not imply that any particular answer is desired or expected. Communication forms are a method of clarifying documentation and are not made part of the Legal Health Record. Thank you in advance for your clarification. Last Revision, September 2015 Alex Gaines [address] [facility] [address] Documentation Clarification Form Date: 02/24/2017 12:06:00 PM From: Heather Seay CCS, CCDS Admit Date: 02/23/2017 4:11:00 PM Patient Name: Vipin Moreno Visit Number: [id number] Discharge Date: Dr. Apple Garcia: The patient presented with the following respiratory symptoms: Coughing up blood with clots, PO 75% enroute per EMS, large clots extracted from the oropharynx, was hypoxic, tachycardic & hypotensive. History of carcinoma of the tonsil, status post chemotherapy & radiation. Possible family history of throat cancer. Per the 02/23 pulmonary consult: The patient became hypoxic and he was in significant respiratory distress yet he was able to cough the blood clots and he maintain the patency of the airway. Clinical Indicators: Tobacco use: Current smoker and marijuana use, History of alcoholism. Vital signs: T 97.0, P 145, R 35, BP 100/55, PO 92 nrb Treatment: ICU, Telemetry, IV fluid bolus, Albuterol INH, IV Decadron, IV Tranexamic, IV Ms, IV Narcan, IV Dextrose. Consults: Pulmonary, ENT In your professional opinion, can you please clarify if these findings signify one of the following conditions? Acuity: o Acute o Chronic o Acute on Chronic Respiratory Status: o Respiratory failure o Respiratory failure with hypercapnia o Respiratory failure with hypoxia o Acute Respiratory Distress o Other Diagnosis, please specify o Unable to determine Please document in your progress notes and discharge summary in order to capture severity of illness and risk of mortality. Include clinical findings that support your diagnosis. FYI: Press F11 to launch patient chart. [email or web address]
[2017-02-24] MEDS: MORPHINE SULFATE 2 MG/ML SYRINGE IV PRN ×3 (12:37→19:36)
--- NOTE | 2017-02-24 13:41 | P.OP ---
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 Patient's developed aspiration severe hoarseness bilateral vocal cord paresis severe dysphagia etc. He has a feeding tube in place. He had a substantial bleeding yesterday from the oropharynx which. Spontaneous and with use of ice water gargles. The trach was recommended to secure his airway. And coughing significantly from his aspiration. Operative Findings: Oral pharyngeal examination reveals a tremendous amount of trismus the patient can only open his mouth less than 2 cm. Base of tongue demonstrates significant swelling is a significant rigidity of the base the tongue and there is a small clot seen on the right retromolar trigone region which appears to be the area where the bleeding emanated from. I was unable to proceed much beyond the epiglottis. Description of Procedure: This patient was taken to the operative room and placed in the supine position. IV sedation was administered and the neck was sterilely prepped and draped in usual fashion. A vertical incision was made with dissection carried down to the cricoid cartilage. We then the strap muscles identified the rest of the trachea and thyroid isthmus and ligated the thyroid isthmus with LigaSure. We did undermining in all directions. This exposed the tracheal cartilage were at the third and fourth tracheal ring a tracheotomy incision was made. Mucus was suctioned and a #8 fenestrated Shiley tracheotomy tube was inserted. Excellent airway was obtained. A tracheotomy was secured and the incision was closed with a 50 rapid Vicryl. The faceplate was tied to the skin with a 20 [place]. Once a tracheotomy was secured we entered the mouth with care to avoid any trauma to the gums or tongue. The Jako laryngoscope was utilized for this procedure. Base the tongue was denuded there was a tremendous amount of hypopharyngeal edema and swelling. The patient was found to have a blood clot on the right retromolar trigone region. I was unable to visualize sequential directly but the hypopharynx and oropharynx showed no signs of pathology but tremendous amount of radiation swelling was noted.
--- NOTE | 2017-02-24 15:18 | P.PN ---
Subjective A 62-year-old male patient who presented to the emergency department this morning because of cough and also copious amount of bright red blood. 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 He presented to the hospital approximately 3 months ago with difficulty in swallowing and weight loss, unintentional. He is a heavy smoker. The patient had also voice change. ENT evaluation was done and the patient was found to have ulcerative lesion of the right tonsillar area with a mass of the oropharyngeal space on the right suspicious for malignancy. Furthermore, a CAT scan of the neck was done and showed extensive ulceration of the right tonsillar bed with involvement of the floor of the mouth and extending to the right pterygoid muscle down to the right hypopharynx with mass effect on the epiglottis. There was also involvement of the false vocal cord on the right. The mass did invade the carotid space.. The patient was seen by hematology oncology and radiation therapy. A PEG tube was inserted for nutritional support. The patient completed radiation therapy. He was also started on systemic chemotherapy. This morning, the patient acutely had massive amount of blood being coughed. No epistaxis. No previous history of hemoptysis. Bleeding is felt to be the cancerous area involving the right tonsillar bed. The patient was cough and a large quantities of clots and similar pieces were extracted from his oropharynx. In the [facility] department his initial pulse ox was 75%. He was hypotensive and tachycardic. He was unable to fully open up his mouth due to radiation-induced scarring/fibrosis and contractures. He is edentulous. The tonsillar bed is quite irregular. There is no active bleeding with a visible vessel on inspection. At the time of my a evaluation the patient was not having any active bleeding. He was however having on and off coughing would bring up of loose liquidy saliva and mucus material. The patient has not been on any blood thinners. No coagulopathy. No anticoagulation. A CAT scan of the neck was repeated and it showed that there is extensive inflammatory change in the bilateral greater maxillary sinuses, mastoid air cells show inflammatory change in the right, ethmoids show inflammatory changes, the airway was patent and a epiglottis was mildly thickened. There was an abnormal fluid collection that was seen on a previous examination and prominence of the base of the tongue on the right soft tissue and these findings were seen to have resolved. As such there was some improvement of the soft tissue abnormality and possible some necrotic focus seen within the area. Possibilities of ulceration of the tonsillar and meningeal mucosal space versus tumor was raised by the radiologist. In any rate , the patient will be admitted to the hospital for further monitoring. ENT evaluation will be requested on an emergent basis. I'm even considering a tracheostomy tube insertion on this patient to protect his airway and securities and airway should events like this occur. He is being given a unit of packed RBC for now. His hemodynamics is stable. Quite weak and cachectic. The voice is extremely hoarse and unable to swallow, receiving enteral feeding through PEG tube. No fever. No change in mental status. On 02/24/2017 the patient was seen in follow-up in the intensive care unit. He was nothing by mouth and he was awaiting his tracheostomy tube at a time of my evaluation this morning. He was still having excessive oral saliva the secretions. His cough is weak. There was obvious concern for aspiration. Swallow mechanisms poor as mentioned earlier. No active bleeding from his larynx or tonsillar bed overnight. Hemoglobin remains stable. He was hemodynamically stable. Based on that, and based on my earlier conversations with ENT, the patient was taken to the operating room and he had a tracheostomy tube insertion and postop the patient was seen in follow-up in the ICU and the patient has a #8 Shiley tracheostomy tube, a nonfenestrated. The procedure without without any complications. The patient has no active bleeding for now. Direct microscopic laryngoscopy was also done. The oropharyngeal area showed that there was small amount of clot in the right retromolar trigone region which appears to be the area that was bleeding previously. The ENT physician who did the procedure was unable to proceed much beyond the epiglottis. Total amount of bleeding during the procedure was less than 5 mL. Patient is doing well. No pain issues. No respiratory distress. Objective - Vital Signs Vital signs: Vital Signs Temp 97.5 F L 02/24/17 12:09 Pulse 106 H 02/24/17 15:00 Resp 15 02/24/17 15:00 BP 151/76 02/24/17 15:00 Pulse Ox 100 02/24/17 15:00 Intake & Output 02/23/17 02/24/17 02/24/17 18:59 06:59 18:59 Intake Total 310 1085 700 Output Total 150 575 505 Balance 160 510 195 Weight 43.091 kg 45.9 kg 45.9 kg Intake: IV 775 700 Dextrose 5%-0.45% NaCl 1, 675 450 000 ml @ 75 mls/hr IV . [id number] [facility] Rx#:[id number] Magnesium Sulfate-D5w Pmx 100 1 gm In Dextrose/Water 1 100ml.bag @ 100 mls/hr IVPB Q1H [facility] Rx#: [id number] Blood Product 310 310 Rc As-1 Unit 0 310 [id number] Rc As-3 Unit 310 [id number] Output: Urine 150 575 500 Estimated Blood Loss 5 - Exam Thin, frail, cachectic, malnourished, and mild degree of respiratory distress.Head exam was generally normal. There was no scleral icterus or corneal arcus. Mucous membranes were moist. The patient has a tracheostomy tube in place which is a #8 fenestrated Shiley tracheostomy tube. Neck shows some asymmetry with swelling and firmness along the superior cervical area on the right probably originating from the tonsillar bed. No lymphadenopathy. The overlying skin is discolored related to previous radiation therapy. Neck is supple. The patient is edentulous. Unable to fully open up his mouth. Posterior oropharyngeal examination shows irregular soft tissue, tonsillar bed and posterior hypopharynx of the right. No oropharyngeal thrush. Liquid the saliva-like material is seen in the posterior oropharynx. No blood clots were observed. Lungs are diminished breath sounds bilaterally. Scattered rhonchi. Scattered expiratory wheezes.Cardiac exam revealed the PMI to be normally situated and sized. The rhythm was regular and no extrasystoles were noted during several minutes of auscultation. The first and second heart sounds were normal and physiologic splitting of the second heart sound was noted. There were no murmurs, rubs, clicks, or gallops.Abdominal exam revealed normal bowel sounds. The abdomen was soft, non-tender, and without masses, organomegaly, or appreciable enlargement of the abdominal aorta. PEG tube site is clean dry and intact.Examination of the extremities revealed easily palpable radial, femoral and pedal pulses. There was no cyanosis, clubbing or edema. Neurologically the patient is awake and alert and following commands and answering questions. - Labs CBC & Chem 7: 02/24/17 04:32 02/24/17 04:32 Labs: Abnormal Lab Results - Last 24 Hours (Table) 02/23/17 02/23/17 02/23/17 Range/Units 12:15 16:16 16:41 WBC 19.5 H (3.8-10.6) k/uL RBC 2.79 L (4.30-5.90) m/uL Hgb 8.5 L (13.0-17.5) gm/dL Hct 25.9 L (39.0-53.0) % RDW 19.1 H (11.5-15.5) % Neutrophils # 18.8 H (1.3-7.7) k/uL Lymphocytes # 0.1 L (1.0-4.8) k/uL PT (9.0-12.0) sec INR (<1.2) Sodium (137-145) mmol/L Creatinine (0.66-1.25) mg/dL Glucose (74-99) mg/dL POC Glucose (mg/dL) (75-99) mg/dL AST (17-59) U/L Total Protein (6.3-8.2) g/dL Albumin (3.5-5.0) g/dL Ur Specific [place] 1.041 H (1.001-1.035) Urine Protein 1+ H (Negative) Ur Leukocyte Esterase Small H (Negative) Urine RBC 34 H (0-5) /hpf Urine WBC 78 H (0-5) /hpf Urine Bacteria Rare H (None) /hpf Urine Mucus Rare H (None) /hpf Urine Yeast (Budding) Rare H (None) /hpf Crossmatch See Detail 02/23/17 02/23/17 02/24/17 Range/Units 20:19 23:59 04:32 WBC 12.8 H (3.8-10.6) k/uL RBC 2.86 L (4.30-5.90) m/uL Hgb 8.4 L (13.0-17.5) gm/dL Hct 27.0 L (39.0-53.0) % RDW 19.9 H (11.5-15.5) % Neutrophils # 11.9 H (1.3-7.7) k/uL Lymphocytes # 0.2 L (1.0-4.8) k/uL PT (9.0-12.0) sec INR (<1.2) Sodium (137-145) mmol/L Creatinine (0.66-1.25) mg/dL Glucose (74-99) mg/dL POC Glucose (mg/dL) 172 H 170 H (75-99) mg/dL AST (17-59) U/L Total Protein (6.3-8.2) g/dL Albumin (3.5-5.0) g/dL Ur Specific [place] (1.001-1.035) Urine Protein (Negative) Ur Leukocyte Esterase (Negative) Urine RBC (0-5) /hpf Urine WBC (0-5) /hpf Urine Bacteria (None) /hpf Urine Mucus (None) /hpf Urine Yeast (Budding) (None) /hpf Crossmatch 02/24/17 02/24/17 02/24/17 Range/Units 04:32 04:32 05:48 WBC (3.8-10.6) k/uL RBC (4.30-5.90) m/uL Hgb (13.0-17.5) gm/dL Hct (39.0-53.0) % RDW (11.5-15.5) % Neutrophils # (1.3-7.7) k/uL Lymphocytes # (1.0-4.8) k/uL PT 12.9 H (9.0-12.0) sec INR 1.3 H (<1.2) Sodium 134 L (137-145) mmol/L Creatinine 0.50 L (0.66-1.25) mg/dL Glucose 141 H (74-99) mg/dL POC Glucose (mg/dL) 175 H (75-99) mg/dL AST 14 L (17-59) U/L Total Protein 5.1 L (6.3-8.2) g/dL Albumin 2.7 L (3.5-5.0) g/dL Ur Specific [place] (1.001-1.035) Urine Protein (Negative) Ur Leukocyte Esterase (Negative) Urine RBC (0-5) /hpf Urine WBC (0-5) /hpf Urine Bacteria (None) /hpf Urine Mucus (None) /hpf Urine Yeast (Budding) (None) /hpf Crossmatch 02/24/17 Range/Units 12:12 WBC (3.8-10.6) k/uL RBC (4.30-5.90) m/uL Hgb (13.0-17.5) gm/dL Hct (39.0-53.0) % RDW (11.5-15.5) % Neutrophils # (1.3-7.7) k/uL Lymphocytes # (1.0-4.8) k/uL PT (9.0-12.0) sec INR (<1.2) Sodium (137-145) mmol/L Creatinine (0.66-1.25) mg/dL Glucose (74-99) mg/dL POC Glucose (mg/dL) 266 H (75-99) mg/dL AST (17-59) U/L Total Protein (6.3-8.2) g/dL Albumin (3.5-5.0) g/dL Ur Specific [place] (1.001-1.035) Urine Protein (Negative) Ur Leukocyte Esterase (Negative) Urine RBC (0-5) /hpf Urine WBC (0-5) /hpf Urine Bacteria (None) /hpf Urine Mucus (None) /hpf Urine Yeast (Budding) (None) /hpf Crossmatch Assessment and Plan Plan: Assessment 1 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 Status post radiation therapy currently undergoing systemic chemotherapy 2 acute bleeding from the retromolar trigone which was involved with squamous cell carcinoma. The patient was treated with radiation therapy and he was currently undergoing systemic chemotherapy. There was concern of his ability to maintain airway patency and there was concern of recurrent bleed. For that reason, a tracheostomy tube was inserted by ENT today and the patient has a #8 Shiley tracheostomy tube, fenestrated. The surgery was done without any complications. He is currently postop. 3 COPD 4 cachexia 5 dysphagia secondary to above currently receiving enteral feeding through PEG tube 6 nephrolithiasis with previous history of hydronephrosis 7 history of alcoholism/smoker 8 hyperglycemia, we'll start insulin/care coverage 9 enteral feeding for nutritional support through a PEG tube. Plan Give the patient a oral suctioning device as the patient can suction his own salivary secretions. Monitor the tracheostomy tube site. The patient had a trach collar at 40%. We will restart tube feeds and the patient will be started on Jevity per dietary. He was also taking Jevity at home. Sliding scale insulin coverage will be added. Continue bronchodilators. IV morphine 2 mg every 2 hours for pain control. DVT and GI prophylaxis. No subcu heparin. SCDs will be applied to his lower extremities. Oncology evaluation. We'll continue to follow. ENT is also on the case. We'll keep the patient ICU for another 12 hours to make sure he remains stable. Change IV fluids to 0.9 at the rate of 40 mL an hour
[2017-02-24] MEDS: SODIUM CHLORIDE 0.9% 1,000 ML IV SCH (17:10)
[2017-02-24 18:39] LABS: Glucose,Whole Blood 117 mg/dL (75-99)
[2017-02-24 19:09] LABS: Anisocytosis Slight; Basophils % (A) 0 %; CH 29.8; CHCM 33.5; Eosinophils # (A) 0.1 k/uL (0-0.7); Eosinophils % (A) 1 %; HCT 25.3 % (39.0-53.0); HDW 3.42; HGB 8.5 gm/dL (13.0-17.5); Luc # (Auto) 0.27; Luc % (Auto) 2; Lymphocytes # (A) 0.3 k/uL (1.0-4.8); Lymphocytes % (A) 2 %; MCH 30.1 pg (25.0-35.0); MCHC 33.5 g/dL (31.0-37.0); MCV 89.8 fL (80.0-100.0); Mean Platelet Volume 7.8; Monocytes # (A) 0.9 k/uL (0-1.0); Monocytes % (A) 5 %; Neutrophils # (A) 16.7 k/uL (1.3-7.7); Neutrophils % (A) 91 %; Poikilocytosis Slight; RBC 2.82 m/uL (4.30-5.90); RDW 18.9 % (11.5-15.5); WBC 18.2 k/uL (3.8-10.6); WBC (Perox) 18.44
[2017-02-25] MEDS: MORPHINE SULFATE 2 MG/ML SYRINGE IV PRN ×7 (00:13→23:49)
[2017-02-25] MEDS: INSULIN LISPRO (humaLOG) 300 UNIT/3 ML VIAL SQ SCH ×4 (00:16→18:04)
[2017-02-25 00:17] LABS: Glucose,Whole Blood 150 mg/dL (75-99)
[2017-02-25 05:10] LABS: Anisocytosis Slight; Basophils % (A) 0 %; CH 30.2; CHCM 31.5; Eosinophils % (A) 0 %; HCT 27.3 % (39.0-53.0); HDW 3.14; HGB 8.3 gm/dL (13.0-17.5); Hypochromasia Slight; Luc % (Auto) 2; Lymphocytes # (A) 0.1 k/uL (1.0-4.8); Lymphocytes % (A) 1 %; MCH 29.5 pg (25.0-35.0); MCHC 30.6 g/dL (31.0-37.0); Macrocytosis Slight; Mean Platelet Volume 7.2; Monocytes # (A) 0.7 k/uL (0-1.0); Monocytes % (A) 5 %; Neutrophils # (A) 11.8 k/uL (1.3-7.7); Neutrophils % (A) 92 %; RBC 2.82 m/uL (4.30-5.90); RDW 19.4 % (11.5-15.5); WBC 12.9 k/uL (3.8-10.6); WBC (Perox) 13.67
[2017-02-25 05:15] LABS: INR 1.3 (<1.2); MCV 96.7 fL (80.0-100.0); Partial Thromboplastin Time 24.6 sec (22.0-30.0); Prothrombin Time 13.1 sec (9.0-12.0)
[2017-02-25 05:40] LABS: Anion Gap 7 mmol/L; Blood Urea Nitrogen 12 mg/dL (9-20); Calcium 8.3 mg/dL (8.4-10.2); Carbon Dioxide 23 mmol/L (22-30); Chloride 102 mmol/L (98-107); Glucose 136 mg/dL (74-99); Magnesium 1.8 mg/dL (1.6-2.3); Non-African American GFR(MDRD) >60 (>60 ml/min/1.73 sqM); Phosphorous 3.6 mg/dL (2.5-4.5); Potassium 4.3 mmol/L (3.5-5.1); Sodium 132 mmol/L (137-145)
[2017-02-25] MEDS ORDERED: Magnesium Replacement Protocol 1 EACH MISC MISCELLANE PRN (06:03)
[2017-02-25 06:15] LABS: Glucose,Whole Blood 145 mg/dL (75-99)
[2017-02-25] MEDS: MAGNESIUM SULFATE-D5W PMX 1 GM in DEXTROSE/WATER 1 100ML.BAG IVPB SCH ×2 (06:19→08:36)
[2017-02-25] MEDS: IPRATROPIUM-ALBUTEROL 3 ML NEB INHALATION SCH ×4 (07:13→20:44)
--- NOTE | 2017-02-25 07:39 | XR ---
EXAMINATION TYPE: XR chest 1V DATE OF EXAM: 02/25/2017 COMPARISON: Prior chest x-ray 02/24/2017 HISTORY: Follow-up, abnormal chest x-ray TECHNIQUE: Single frontal view of the chest is obtained. FINDINGS: Patient is rotated. There are overlying cardiac leads. Interval placement of a tracheostom y tube which is overlying the tracheal air column. No pneumothorax or pleural effusion. Heart size ap pears accentuated although rotation may cause this appearance. Right costophrenic angle is not includ ed on the exam. IMPRESSION: Interval tracheostomy tube placement and additional findings above
[2017-02-25] MEDS: PANTOPRAZOLE 40 MG/10 ML VIAL IV SCH (08:37)
--- NOTE | 2017-02-25 09:36 | HP ---
CHIEF COMPLAINT: Blood spitting. HISTORY OF PRESENT ILLNESS: This is another admission for this 62-year-old white male who is being treated for right squamous cell carcinoma of the tonsil. He has been treated and doing fairly well, but having difficulty maintaining nutrition. He started to develop copious amounts of blood spitting and coughing. He came to the emergency room and was admitted. He has been transfused. He denies any significantly increased pain, but he has had chronic pain throughout the process of his disease. REVIEW OF SYSTEMS: He has had no chills, fever, vomiting, diarrhea, melena, etc. Past medical history, family history and personal and social histories are all unremarkable and potentially unchanged. He has been on Zofran, MiraLAX and morphine. PHYSICAL EXAM: Blood pressure is 80/38 with a pulse of 96, respirations of 40 and he is afebrile. Head, ears, eyes, nose, mouth and throat were normal, but he appeared to be chronically ill and he was cachectic. Neck veins are not distended. There are no neck masses. Chest demonstrates poor breath sounds with wheezing, rales and rhonchi bilaterally. Cardiac exam is normal. The abdomen is scaphoid. Extremities are normal. IMPRESSION: Squamous cell carcinoma of the right tonsil with blood spitting. PLAN; 1. Bed rest. 2. IV fluids. 3. Consult with ENT. 4. Follow hemoglobin and transfuse as indicated. MTDD
--- NOTE | 2017-02-25 09:41 | PN ---
CHIEF COMPLAINT: Blood spitting. HISTORY OF PRESENT ILLNESS: This gentleman is stable and he is not coughing up or spitting up blood anymore. He is going for ENT procedure today to see if this could be stopped. [place]
[2017-02-25] MEDS: PIPERACILLIN-TAZOBACTAM 3.375 GM in DEXTROSE/WATER 1 50ML.BAG IVPB SCH ×3 (12:01→23:46)
[2017-02-25 12:02] LABS: Glucose,Whole Blood 133 mg/dL (75-99)
[2017-02-25 12:16] LABS: Glucose,Whole Blood 138 mg/dL (75-99)
--- NOTE | 2017-02-25 14:49 | P.PN ---
Subjective A 62-year-old male patient who presented to the emergency department this morning because of cough and also copious amount of bright red blood. 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 He presented to the hospital approximately 3 months ago with difficulty in swallowing and weight loss, unintentional. He is a heavy smoker. The patient had also voice change. ENT evaluation was done and the patient was found to have ulcerative lesion of the right tonsillar area with a mass of the oropharyngeal space on the right suspicious for malignancy. Furthermore, a CAT scan of the neck was done and showed extensive ulceration of the right tonsillar bed with involvement of the floor of the mouth and extending to the right pterygoid muscle down to the right hypopharynx with mass effect on the epiglottis. There was also involvement of the false vocal cord on the right. The mass did invade the carotid space.. The patient was seen by hematology oncology and radiation therapy. A PEG tube was inserted for nutritional support. The patient completed radiation therapy. He was also started on systemic chemotherapy. This morning, the patient acutely had massive amount of blood being coughed. No epistaxis. No previous history of hemoptysis. Bleeding is felt to be the cancerous area involving the right tonsillar bed. The patient was cough and a large quantities of clots and similar pieces were extracted from his oropharynx. In the [facility] department his initial pulse ox was 75%. He was hypotensive and tachycardic. He was unable to fully open up his mouth due to radiation-induced scarring/fibrosis and contractures. He is edentulous. The tonsillar bed is quite irregular. There is no active bleeding with a visible vessel on inspection. At the time of my a evaluation the patient was not having any active bleeding. He was however having on and off coughing would bring up of loose liquidy saliva and mucus material. The patient has not been on any blood thinners. No coagulopathy. No anticoagulation. A CAT scan of the neck was repeated and it showed that there is extensive inflammatory change in the bilateral greater maxillary sinuses, mastoid air cells show inflammatory change in the right, ethmoids show inflammatory changes, the airway was patent and a epiglottis was mildly thickened. There was an abnormal fluid collection that was seen on a previous examination and prominence of the base of the tongue on the right soft tissue and these findings were seen to have resolved. As such there was some improvement of the soft tissue abnormality and possible some necrotic focus seen within the area. Possibilities of ulceration of the tonsillar and meningeal mucosal space versus tumor was raised by the radiologist. In any rate , the patient will be admitted to the hospital for further monitoring. ENT evaluation will be requested on an emergent basis. I'm even considering a tracheostomy tube insertion on this patient to protect his airway and securities and airway should events like this occur. He is being given a unit of packed RBC for now. His hemodynamics is stable. Quite weak and cachectic. The voice is extremely hoarse and unable to swallow, receiving enteral feeding through PEG tube. No fever. No change in mental status. On 02/24/2017 the patient was seen in follow-up in the intensive care unit. He was nothing by mouth and he was awaiting his tracheostomy tube at a time of my evaluation this morning. He was still having excessive oral saliva the secretions. His cough is weak. There was obvious concern for aspiration. Swallow mechanisms poor as mentioned earlier. No active bleeding from his larynx or tonsillar bed overnight. Hemoglobin remains stable. He was hemodynamically stable. Based on that, and based on my earlier conversations with ENT, the patient was taken to the operating room and he had a tracheostomy tube insertion and postop the patient was seen in follow-up in the ICU and the patient has a #8 Shiley tracheostomy tube, a nonfenestrated. The procedure without without any complications. The patient has no active bleeding for now. Direct microscopic laryngoscopy was also done. The oropharyngeal area showed that there was small amount of clot in the right retromolar trigone region which appears to be the area that was bleeding previously. The ENT physician who did the procedure was unable to proceed much beyond the epiglottis. Total amount of bleeding during the procedure was less than 5 mL. Patient is doing well. No pain issues. No respiratory distress. On 02/25/2017 the patient is posterior chest with of insertion. On today's evaluation the patient is having a very foul smell which we think it's originating from his neck area. This was absent provided to tracheostomy tube insertion. Following the trach tube insertion and since last night the patient has been producing mild to moderate amount of purulent sputum and the same time there is a very foul smell in the room. Despite all this, the patient is not having any respiratory difficulties. He is resting comfortably in bed. Tracheostomy site is intact. The patient has a #[address] His mouth is clear. The patient is able to suction his saliva using a bedside suction. No fever. No chills. He is tolerating his tube feeds. No other issues otherwise for now. Objective - Vital Signs Vital signs: Vital Signs Temp 98.2 F 02/25/17 12:00 Pulse 113 H 02/25/17 14:00 Resp 21 02/25/17 14:00 BP 122/62 02/25/17 14:00 Pulse Ox 100 02/25/17 14:00 Intake & Output 02/24/17 02/25/17 02/25/17 18:59 06:59 18:59 Intake Total 925 540 310 Output Total 842 603 2775 Balance 170 -435 -740 Weight 45.9 kg 44.8 kg Intake: IV 925 540 310 Dextrose 5%-0.45% NaCl 1, 675 000 ml @ 75 mls/hr IV . [id number] MARYANNE Rx#:[id number] Magnesium Sulfate-D5w Pmx 100 1 gm In Dextrose/Water 1 100ml.bag @ 100 mls/hr IVPB Q1H MARYANNE Rx#: [id number] Sodium Chloride 0.9% 1, 540 210 000 ml @ 45 mls/hr IV . [id number] MARYANNE Rx#:[id number] Output: Urine 305 703 7590 Estimated Blood Loss 5 - Exam Thin, frail, cachectic, malnourished, and mild degree of respiratory distress.Head exam was generally normal. There was no scleral icterus or corneal arcus. Mucous membranes were moist. The patient has a tracheostomy tube in place which is a #8 fenestrated Shiley tracheostomy tube. Neck shows some asymmetry with swelling and firmness along the superior cervical area on the right probably originating from the tonsillar bed. No lymphadenopathy. The overlying skin is discolored related to previous radiation therapy. Neck is supple. The patient is edentulous. Unable to fully open up his mouth. Posterior oropharyngeal examination shows irregular soft tissue, tonsillar bed and posterior hypopharynx of the right. No oropharyngeal thrush. Liquid the saliva-like material is seen in the posterior oropharynx. No blood clots were observed. Lungs are diminished breath sounds bilaterally. Scattered rhonchi. Scattered expiratory wheezes.Cardiac exam revealed the PMI to be normally situated and sized. The rhythm was regular and no extrasystoles were noted during several minutes of auscultation. The first and second heart sounds were normal and physiologic splitting of the second heart sound was noted. There were no murmurs, rubs, clicks, or gallops.Abdominal exam revealed normal bowel sounds. The abdomen was soft, non-tender, and without masses, organomegaly, or appreciable enlargement of the abdominal aorta. PEG tube site is clean dry and intact.Examination of the extremities revealed easily palpable radial, femoral and pedal pulses. There was no cyanosis, clubbing or edema. Neurologically the patient is awake and alert and following commands and answering questions. - Labs CBC & Chem 7: 02/25/17 04:50 02/25/17 04:50 Labs: Abnormal Lab Results - Last 24 Hours (Table) 02/24/17 02/24/17 02/25/17 Range/Units 18:38 18:57 00:16 WBC 18.2 H (3.8-10.6) k/uL RBC 2.82 L (4.30-5.90) m/uL Hgb 8.5 L (13.0-17.5) gm/dL Hct 25.3 L (39.0-53.0) % MCHC (31.0-37.0) g/dL RDW 18.9 H (11.5-15.5) % Neutrophils # 16.7 H (1.3-7.7) k/uL Lymphocytes # 0.3 L (1.0-4.8) k/uL PT (9.0-12.0) sec INR (<1.2) Sodium (137-145) mmol/L Creatinine (0.66-1.25) mg/dL Glucose (74-99) mg/dL POC Glucose (mg/dL) 117 H 150 H (75-99) mg/dL Calcium (8.4-10.2) mg/dL 02/25/17 02/25/17 02/25/17 Range/Units 04:50 04:50 04:50 WBC 12.9 H (3.8-10.6) k/uL RBC 2.82 L (4.30-5.90) m/uL Hgb 8.3 L (13.0-17.5) gm/dL Hct 27.3 L (39.0-53.0) % MCHC 30.6 L (31.0-37.0) g/dL RDW 19.4 H (11.5-15.5) % Neutrophils # 11.8 H (1.3-7.7) k/uL Lymphocytes # 0.1 L (1.0-4.8) k/uL PT 13.1 H (9.0-12.0) sec INR 1.3 H (<1.2) Sodium 132 L (137-145) mmol/L Creatinine 0.50 L (0.66-1.25) mg/dL Glucose 136 H (74-99) mg/dL POC Glucose (mg/dL) (75-99) mg/dL Calcium 8.3 L (8.4-10.2) mg/dL 02/25/17 02/25/17 02/25/17 Range/Units 06:13 11:59 12:14 WBC (3.8-10.6) k/uL RBC (4.30-5.90) m/uL Hgb (13.0-17.5) gm/dL Hct (39.0-53.0) % MCHC (31.0-37.0) g/dL RDW (11.5-15.5) % Neutrophils # (1.3-7.7) k/uL Lymphocytes # (1.0-4.8) k/uL PT (9.0-12.0) sec INR (<1.2) Sodium (137-145) mmol/L Creatinine (0.66-1.25) mg/dL Glucose (74-99) mg/dL POC Glucose (mg/dL) 145 H 133 H 138 H (75-99) mg/dL Calcium (8.4-10.2) mg/dL Assessment and Plan Plan: Assessment 1 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 Status post radiation therapy currently undergoing systemic chemotherapy 2 acute bleeding from the retromolar trigone which was involved with squamous cell carcinoma. The patient was treated with radiation therapy and he was currently undergoing systemic chemotherapy. There was concern of his ability to maintain airway patency and there was concern of recurrent bleed. For that reason, a tracheostomy tube was inserted by ENT today and the patient has a #8 Shiley tracheostomy tube, fenestrated. The surgery was done without any complications. 3 COPD 4 acute tracheal bronchitis suspected with excess amount of foul smell from his tracheostomy tube. Could be also an infected necrotic tumor within the posterior oropharynx and retromolar trigone area. CAT scan of the neck was done earlier. No evidence of any abscess formation. Sputum sample was sent for cultures and the patient was started on antibiotics. 5 dysphagia secondary to above currently receiving enteral feeding through PEG tube 6 nephrolithiasis with previous history of hydronephrosis 7 history of alcoholism/smoker 8 hyperglycemia, we'll start insulin/care coverage 9 enteral feeding for nutritional support through a PEG tube. 10 cachexia Plan Continue oral care, suctioning of the saliva 6 is being done by the patient. Tracheostomy site is clean and intact. Obtain sputum Gram stain and culture. Start the patient IV Zosyn. Continue the Jevity. DVT and GI prophylaxis. Oncology evaluation. The patient will be transferred out to a medical floor. He will need a private room due to the excessive foul-smell. Rest of the medication will be kept unchanged. The patient on DuoNeb about treatments around the clock. He is on adequate pain control. He has SCDs to prevent lower extremity DVTs.
[2017-02-25 18:04] LABS: Glucose,Whole Blood 185 mg/dL (75-99)
[2017-02-25] MEDS: SODIUM CHLORIDE 0.9% 1,000 ML IV SCH (18:07)
[2017-02-26 00:43] LABS: Glucose,Whole Blood 156 mg/dL (75-99)
[2017-02-26] MEDS: INSULIN LISPRO (humaLOG) 300 UNIT/3 ML VIAL SQ SCH ×4 (00:59→18:19)
[2017-02-26] MEDS: MORPHINE SULFATE 2 MG/ML SYRINGE IV PRN ×7 (02:43→20:59)
[2017-02-26 06:03] LABS: Glucose,Whole Blood 150 mg/dL (75-99)
[2017-02-26 07:26] LABS: Anisocytosis Slight; Basophils % (A) 0 %; CH 29.8; CHCM 31.8; Eosinophils % (A) 0 %; HCT 27.1 % (39.0-53.0); HGB 9.1 gm/dL (13.0-17.5); Hypochromasia Slight; Luc # (Auto) 0.24; Luc % (Auto) 2; Lymphocytes # (A) 0.2 k/uL (1.0-4.8); Lymphocytes % (A) 2 %; MCH 31.6 pg (25.0-35.0); MCHC 33.7 g/dL (31.0-37.0); Macrocytosis Slight; Mean Platelet Volume 7.4; Monocytes # (A) 0.8 k/uL (0-1.0); Monocytes % (A) 7 %; Neutrophils # (A) 10.1 k/uL (1.3-7.7); Neutrophils % (A) 89 %; RBC 2.89 m/uL (4.30-5.90); WBC 11.4 k/uL (3.8-10.6); WBC (Perox) 12.04
[2017-02-26 07:37] LABS: Anion Gap 5 mmol/L; Blood Urea Nitrogen 9 mg/dL (9-20); Carbon Dioxide 28 mmol/L (22-30); Chloride 97 mmol/L (98-107); Glucose 95 mg/dL (74-99); Magnesium 1.8 mg/dL (1.6-2.3); Non-African American GFR(MDRD) >60 (>60 ml/min/1.73 sqM); Potassium 3.9 mmol/L (3.5-5.1); Sodium 130 mmol/L (137-145)
[2017-02-26 07:44] LABS: INR 1.3 (<1.2); Partial Thromboplastin Time 26.5 sec (22.0-30.0); Prothrombin Time 12.7 sec (9.0-12.0)
[2017-02-26] MEDS: PIPERACILLIN-TAZOBACTAM 3.375 GM in DEXTROSE/WATER 1 50ML.BAG IVPB SCH ×3 (08:45→23:27)
[2017-02-26] MEDS: PANTOPRAZOLE 40 MG/10 ML VIAL IV SCH (08:45)
[2017-02-26] MEDS: IPRATROPIUM-ALBUTEROL 3 ML NEB INHALATION SCH ×4 (09:03→21:27)
--- NOTE | 2017-02-26 10:27 | PN ---
CHIEF COMPLAINT: Tonsillar carcinoma with bleeding. HISTORY OF PRESENT ILLNESS: This gentleman has been stable and he has had no further bleeding. He did have a tracheostomy and probably will be moved to the floor. PHYSICAL EXAM: He remains pale. Chest is clear. Cardiac exam is normal. IMPRESSION: 1. Status post tracheostomy. 2. Carcinoma of the right tonsil. 3. Hemorrhage from carcinoma. PLAN: Move to step-down unit today. [place]
--- NOTE | 2017-02-26 11:37 | P.PN ---
Subjective Principal diagnosis: Postoperative evaluation Patient is status post a tracheotomy. He has been doing well after surgery. He has been bringing up a large amount of sputum. Gram stain shows mixed organisms. The patient is on Zosyn. He still has a retention suture and the faceplate. We will remove this today Objective - Vital Signs Vital signs: Vital Signs Temp 99 F 02/26/17 06:17 Pulse 100 02/26/17 09:17 Resp 18 02/26/17 06:17 BP 119/56 02/26/17 06:17 Pulse Ox 100 02/26/17 06:17 Intake & Output 02/25/17 02/26/17 02/26/17 18:59 06:59 18:59 Intake Total 350 30 Output Total 1050 300 Balance -700 -270 Weight 44.8 kg 44.8 kg Intake: IV 350 30 Magnesium Sulfate-D5w Pmx 100 1 gm In Dextrose/Water 1 100ml.bag @ 100 mls/hr IVPB Q1H MARYANNE Rx#: [id number] Sodium Chloride 0.9% 1, 250 30 000 ml @ 10 mls/hr IV . Q24H MARYANNE Rx#:[id number] Output: Urine 1050 300 Other: # Voids 2 - Constitutional General appearance: Present: thin - EENT EENT Comment(s): Patient has severe trismus. The patient's edentulous. Follow smell from the mouth. No bleeding noted. Eyes: Present: PERRLA, fundus normal ENT: Present: hard of hearing - Neck Details: Status post radiation changes noted. Patient has severe trismus and swelling especially on the right neck. Skin changes are noted. Effects of radiation are obvious. - Labs CBC & Chem 7: 02/26/17 06:38 02/26/17 06:38 Labs: Abnormal Lab Results - Last 24 Hours (Table) 02/25/17 02/25/17 02/25/17 Range/Units 11:59 12:14 18:03 WBC (3.8-10.6) k/uL RBC (4.30-5.90) m/uL Hgb (13.0-17.5) gm/dL Hct (39.0-53.0) % RDW (11.5-15.5) % Neutrophils # (1.3-7.7) k/uL Lymphocytes # (1.0-4.8) k/uL PT (9.0-12.0) sec INR (<1.2) Sodium (137-145) mmol/L Chloride (98-107) mmol/L Creatinine (0.66-1.25) mg/dL POC Glucose (mg/dL) 133 H 138 H 185 H (75-99) mg/dL Calcium (8.4-10.2) mg/dL 02/26/17 02/26/17 02/26/17 Range/Units 00:17 05:57 06:38 WBC 11.4 H (3.8-10.6) k/uL RBC 2.89 L (4.30-5.90) m/uL Hgb 9.1 L (13.0-17.5) gm/dL Hct 27.1 L (39.0-53.0) % RDW 18.0 H (11.5-15.5) % Neutrophils # 10.1 H (1.3-7.7) k/uL Lymphocytes # 0.2 L (1.0-4.8) k/uL PT (9.0-12.0) sec INR (<1.2) Sodium (137-145) mmol/L Chloride (98-107) mmol/L Creatinine (0.66-1.25) mg/dL POC Glucose (mg/dL) 156 H 150 H (75-99) mg/dL Calcium (8.4-10.2) mg/dL 02/26/17 02/26/17 Range/Units 06:38 06:38 WBC (3.8-10.6) k/uL RBC (4.30-5.90) m/uL Hgb (13.0-17.5) gm/dL Hct (39.0-53.0) % RDW (11.5-15.5) % Neutrophils # (1.3-7.7) k/uL Lymphocytes # (1.0-4.8) k/uL PT 12.7 H (9.0-12.0) sec INR 1.3 H (<1.2) Sodium 130 L (137-145) mmol/L Chloride 97 L (98-107) mmol/L Creatinine 0.45 L (0.66-1.25) mg/dL POC Glucose (mg/dL) (75-99) mg/dL Calcium 8.0 L (8.4-10.2) mg/dL Microbiology - Last 24 Hours (Table) 02/25/17 11:03 Gram Stain - Preliminary Sputum Sputum Culture - Preliminary Assessment and Plan (1) Hoarseness of voice Status: Acute (2) Vocal cord paresis Status: Acute (3) Aspiration into lower respiratory tract Status: Acute (4) Blood loss anemia Status: Acute Plan: This patient is progressing as expected after his tracheotomy. He is bringing up a large amount of sputum and we will treat him medically with appropriate antibiotics and are awaiting cultures. More aggressive respiratory care is recommended. More frequent suctioning as needed. We will communicate this with the respiratory department. We will remove the retention sutures from the faceplate today. This will allow the respiratory therapist to keep a drain sponge under the trach. I anticipate that this tracheotomy tube will need to be in place for an extended period of time. Home care for trach training and care is recommended.
[2017-02-26 12:09] LABS: Glucose,Whole Blood 126 mg/dL (75-99)
--- NOTE | 2017-02-26 13:33 | P.PN ---
Subjective A 62-year-old male patient who presented to the emergency department this morning because of cough and also copious amount of bright red blood. 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 He presented to the hospital approximately 3 months ago with difficulty in swallowing and weight loss, unintentional. He is a heavy smoker. The patient had also voice change. ENT evaluation was done and the patient was found to have ulcerative lesion of the right tonsillar area with a mass of the oropharyngeal space on the right suspicious for malignancy. Furthermore, a CAT scan of the neck was done and showed extensive ulceration of the right tonsillar bed with involvement of the floor of the mouth and extending to the right pterygoid muscle down to the right hypopharynx with mass effect on the epiglottis. There was also involvement of the false vocal cord on the right. The mass did invade the carotid space.. The patient was seen by hematology oncology and radiation therapy. A PEG tube was inserted for nutritional support. The patient completed radiation therapy. He was also started on systemic chemotherapy. This morning, the patient acutely had massive amount of blood being coughed. No epistaxis. No previous history of hemoptysis. Bleeding is felt to be the cancerous area involving the right tonsillar bed. The patient was cough and a large quantities of clots and similar pieces were extracted from his oropharynx. In the [facility] department his initial pulse ox was 75%. He was hypotensive and tachycardic. He was unable to fully open up his mouth due to radiation-induced scarring/fibrosis and contractures. He is edentulous. The tonsillar bed is quite irregular. There is no active bleeding with a visible vessel on inspection. At the time of my a evaluation the patient was not having any active bleeding. He was however having on and off coughing would bring up of loose liquidy saliva and mucus material. The patient has not been on any blood thinners. No coagulopathy. No anticoagulation. A CAT scan of the neck was repeated and it showed that there is extensive inflammatory change in the bilateral greater maxillary sinuses, mastoid air cells show inflammatory change in the right, ethmoids show inflammatory changes, the airway was patent and a epiglottis was mildly thickened. There was an abnormal fluid collection that was seen on a previous examination and prominence of the base of the tongue on the right soft tissue and these findings were seen to have resolved. As such there was some improvement of the soft tissue abnormality and possible some necrotic focus seen within the area. Possibilities of ulceration of the tonsillar and meningeal mucosal space versus tumor was raised by the radiologist. In any rate , the patient will be admitted to the hospital for further monitoring. ENT evaluation will be requested on an emergent basis. I'm even considering a tracheostomy tube insertion on this patient to protect his airway and securities and airway should events like this occur. He is being given a unit of packed RBC for now. His hemodynamics is stable. Quite weak and cachectic. The voice is extremely hoarse and unable to swallow, receiving enteral feeding through PEG tube. No fever. No change in mental status. On 02/24/2017 the patient was seen in follow-up in the intensive care unit. He was nothing by mouth and he was awaiting his tracheostomy tube at a time of my evaluation this morning. He was still having excessive oral saliva the secretions. His cough is weak. There was obvious concern for aspiration. Swallow mechanisms poor as mentioned earlier. No active bleeding from his larynx or tonsillar bed overnight. Hemoglobin remains stable. He was hemodynamically stable. Based on that, and based on my earlier conversations with ENT, the patient was taken to the operating room and he had a tracheostomy tube insertion and postop the patient was seen in follow-up in the ICU and the patient has a #8 Shiley tracheostomy tube, a nonfenestrated. The procedure without without any complications. The patient has no active bleeding for now. Direct microscopic laryngoscopy was also done. The oropharyngeal area showed that there was small amount of clot in the right retromolar trigone region which appears to be the area that was bleeding previously. The ENT physician who did the procedure was unable to proceed much beyond the epiglottis. Total amount of bleeding during the procedure was less than 5 mL. Patient is doing well. No pain issues. No respiratory distress. On 02/25/2017 the patient is posterior chest with of insertion. On today's evaluation the patient is having a very foul smell which we think it's originating from his neck area. This was absent provided to tracheostomy tube insertion. Following the trach tube insertion and since last night the patient has been producing mild to moderate amount of purulent sputum and the same time there is a very foul smell in the room. Despite all this, the patient is not having any respiratory difficulties. He is resting comfortably in bed. Tracheostomy site is intact. The patient has a #[address] His mouth is clear. The patient is able to suction his saliva using a bedside suction. No fever. No chills. He is tolerating his tube feeds. No other issues otherwise for now. The patient is seen again today at 02/26/2017 on the oncology unit. He is awake and alert in no acute distress. He is maintaining good O2 saturations up to 100% on 28% trach collar. The very foul smelling odor from yesterday has subsided. Preliminary sputum culture reveals gram-negative bacilli and beta hemolytic strep group C. He is currently on Zosyn. His oral secretions have subsided. He was seen today by ENT who removed the retention sutures and faceplate. Trach site is healing well. Objective - Vital Signs Vital signs: Vital Signs Temp 99 F 02/26/17 06:17 Pulse 112 H 02/26/17 12:42 Resp 18 02/26/17 06:17 BP 119/56 02/26/17 06:17 Pulse Ox 100 02/26/17 06:17 Intake & Output 02/25/17 02/26/17 02/26/17 18:59 06:59 18:59 Intake Total 350 30 Output Total 1050 300 Balance -700 -270 Weight 44.8 kg 44.8 kg Intake: IV 350 30 Magnesium Sulfate-D5w Pmx 100 1 gm In Dextrose/Water 1 100ml.bag @ 100 mls/hr IVPB Q1H MARYANNE Rx#: [id number] Sodium Chloride 0.9% 1, 250 30 000 ml @ 10 mls/hr IV . Q24H MARYANNE Rx#:[id number] Output: Urine 1050 300 Other: # Voids 2 - Exam Thin, frail, cachectic, malnourished, and mild degree of respiratory distress.Head exam was generally normal. There was no scleral icterus or corneal arcus. Mucous membranes were moist. The patient has a tracheostomy tube in place which is a #8 fenestrated Shiley tracheostomy tube. Neck shows some asymmetry with swelling and firmness along the superior cervical area on the right probably originating from the tonsillar bed. No lymphadenopathy. The overlying skin is discolored related to previous radiation therapy. Neck is supple. The patient is edentulous. Unable to fully open up his mouth. Posterior oropharyngeal examination shows irregular soft tissue, tonsillar bed and posterior hypopharynx of the right. No oropharyngeal thrush. Liquid the saliva-like material is seen in the posterior oropharynx. No blood clots were observed. Lungs are diminished breath sounds bilaterally. Scattered rhonchi. Scattered expiratory wheezes.Cardiac exam revealed the PMI to be normally situated and sized. The rhythm was regular and no extrasystoles were noted during several minutes of auscultation. The first and second heart sounds were normal and physiologic splitting of the second heart sound was noted. There were no murmurs, rubs, clicks, or gallops.Abdominal exam revealed normal bowel sounds. The abdomen was soft, non-tender, and without masses, organomegaly, or appreciable enlargement of the abdominal aorta. PEG tube site is clean dry and intact.Examination of the extremities revealed easily palpable radial, femoral and pedal pulses. There was no cyanosis, clubbing or edema. Neurologically the patient is awake and alert and following commands and answering questions. - Labs CBC & Chem 7: 02/26/17 06:38 02/26/17 06:38 Labs: Abnormal Lab Results - Last 24 Hours (Table) 02/25/17 02/26/17 02/26/17 Range/Units 18:03 00:17 05:57 WBC (3.8-10.6) k/uL RBC (4.30-5.90) m/uL Hgb (13.0-17.5) gm/dL Hct (39.0-53.0) % RDW (11.5-15.5) % Neutrophils # (1.3-7.7) k/uL Lymphocytes # (1.0-4.8) k/uL PT (9.0-12.0) sec INR (<1.2) Sodium (137-145) mmol/L Chloride (98-107) mmol/L Creatinine (0.66-1.25) mg/dL POC Glucose (mg/dL) 185 H 156 H 150 H (75-99) mg/dL Calcium (8.4-10.2) mg/dL 02/26/17 02/26/17 02/26/17 Range/Units 06:38 06:38 06:38 WBC 11.4 H (3.8-10.6) k/uL RBC 2.89 L (4.30-5.90) m/uL Hgb 9.1 L (13.0-17.5) gm/dL Hct 27.1 L (39.0-53.0) % RDW 18.0 H (11.5-15.5) % Neutrophils # 10.1 H (1.3-7.7) k/uL Lymphocytes # 0.2 L (1.0-4.8) k/uL PT 12.7 H (9.0-12.0) sec INR 1.3 H (<1.2) Sodium 130 L (137-145) mmol/L Chloride 97 L (98-107) mmol/L Creatinine 0.45 L (0.66-1.25) mg/dL POC Glucose (mg/dL) (75-99) mg/dL Calcium 8.0 L (8.4-10.2) mg/dL 02/26/17 Range/Units 11:52 WBC (3.8-10.6) k/uL RBC (4.30-5.90) m/uL Hgb (13.0-17.5) gm/dL Hct (39.0-53.0) % RDW (11.5-15.5) % Neutrophils # (1.3-7.7) k/uL Lymphocytes # (1.0-4.8) k/uL PT (9.0-12.0) sec INR (<1.2) Sodium (137-145) mmol/L Chloride (98-107) mmol/L Creatinine (0.66-1.25) mg/dL POC Glucose (mg/dL) 126 H (75-99) mg/dL Calcium (8.4-10.2) mg/dL Microbiology - Last 24 Hours (Table) 02/25/17 11:03 Gram Stain - Preliminary Sputum Sputum Culture - Preliminary Gram Neg Bacilli Beta Hemolytic Strep Group C Assessment and Plan Plan: Assessment 1 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 Status post radiation therapy currently undergoing systemic chemotherapy 2 acute bleeding from the retromolar trigone which was involved with squamous cell carcinoma. The patient was treated with radiation therapy and he was currently undergoing systemic chemotherapy. There was concern of his ability to maintain airway patency and there was concern of recurrent bleed. For that reason, a tracheostomy tube was inserted by ENT today and the patient has a #8 Shiley tracheostomy tube, fenestrated. The surgery was done without any complications. 3 COPD 4 acute tracheal bronchitis suspected with excess amount of foul smell from his tracheostomy tube. Could be also an infected necrotic tumor within the posterior oropharynx and retromolar trigone area. CAT scan of the neck was done earlier. No evidence of any abscess formation. Sputum sample was sent for cultures and the patient was started on antibiotics. 5 dysphagia secondary to above currently receiving enteral feeding through PEG tube 6 nephrolithiasis with previous history of hydronephrosis 7 history of alcoholism/smoker 8 hyperglycemia, we'll start insulin/care coverage 9 enteral feeding for nutritional support through a PEG tube. 10 cachexia Plan The patient was seen and evaluated by Dr. Garcia. We will await final culture results. He'll continue on Zosyn for now. The foul-smelling odor has since subsided. He is tolerating his tube feeds via the PEG tube site. Continue with his current medications including bronchodilators. We'll continue to follow.
[2017-02-26 17:56] LABS: Glucose,Whole Blood 141 mg/dL (75-99)
--- NOTE | 2017-02-26 19:15 | PN ---
DATE OF SERVICE: 02/26/2017 CHIEF COMPLAINT: Bleeding from Ca of the tonsil. HISTORY OF PRESENT ILLNESS: This gentleman is comfortable and he has had no further bleeding. Trach is not bleeding. PHYSICAL EXAM: CHEST: He has occasional rhonchi bilaterally. CARDIAC: Normal. ABDOMEN: Soft. IMPRESSION: Carcinoma of the tonsil with hemorrhage. PLAN: Continue to follow with his fresh trach. [facility]
[2017-02-26] MEDS: SODIUM CHLORIDE 0.9% 1,000 ML IV SCH (23:51)
[2017-02-27 01:24] LABS: Glucose,Whole Blood 179 mg/dL (75-99)
[2017-02-27] MEDS: INSULIN LISPRO (humaLOG) 300 UNIT/3 ML VIAL SQ SCH ×4 (01:46→18:30)
[2017-02-27] MEDS: MORPHINE SULFATE 2 MG/ML SYRINGE IV PRN ×10 (03:05→23:42)
[2017-02-27 06:27] LABS: Glucose,Whole Blood 124 mg/dL (75-99)
[2017-02-27] MEDS: PANTOPRAZOLE 40 MG/10 ML VIAL IV SCH (07:21)
[2017-02-27] MEDS: PIPERACILLIN-TAZOBACTAM 3.375 GM in DEXTROSE/WATER 1 50ML.BAG IVPB SCH ×3 (07:21→23:09)
[2017-02-27 07:31] LABS: Anisocytosis Slight; Basophils % (A) 0 %; CH 29.8; CHCM 31.5; Eosinophils % (A) 0 %; HCT 25.2 % (39.0-53.0); HDW 2.83; Hypochromasia Slight; Luc # (Auto) 0.35; Luc % (Auto) 3; Lymphocytes # (A) 0.2 k/uL (1.0-4.8); Lymphocytes % (A) 2 %; MCHC 31.6 g/dL (31.0-37.0); MCV 94.9 fL (80.0-100.0); Macrocytosis Slight; Monocytes # (A) 0.8 k/uL (0-1.0); Monocytes % (A) 8 %; Neutrophils # (A) 8.9 k/uL (1.3-7.7); Neutrophils % (A) 87 %; RBC 2.66 m/uL (4.30-5.90); RDW 17.7 % (11.5-15.5); WBC 10.2 k/uL (3.8-10.6); WBC (Perox) 10.61
[2017-02-27 07:40] LABS: INR 1.3 (<1.2); Partial Thromboplastin Time 25.8 sec (22.0-30.0); Prothrombin Time 12.6 sec (9.0-12.0)
[2017-02-27 07:47] LABS: Anion Gap 6 mmol/L; Blood Urea Nitrogen 9 mg/dL (9-20); Calcium 8.1 mg/dL (8.4-10.2); Carbon Dioxide 27 mmol/L (22-30); Chloride 97 mmol/L (98-107); Glucose 97 mg/dL (74-99); Magnesium 1.7 mg/dL (1.6-2.3); Non-African American GFR(MDRD) >60 (>60 ml/min/1.73 sqM); Phosphorous 2.8 mg/dL (2.5-4.5); Potassium 4.1 mmol/L (3.5-5.1); Sodium 130 mmol/L (137-145)
[2017-02-27] MEDS: IPRATROPIUM-ALBUTEROL 3 ML NEB INHALATION SCH ×4 (08:05→22:28)
[2017-02-27 12:25] LABS: Glucose,Whole Blood 106 mg/dL (75-99)
--- NOTE | 2017-02-27 13:23 | P.PN ---
Subjective A 62-year-old male patient who presented to the emergency department this morning because of cough and also copious amount of bright red blood. 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 He presented to the hospital approximately 3 months ago with difficulty in swallowing and weight loss, unintentional. He is a heavy smoker. The patient had also voice change. ENT evaluation was done and the patient was found to have ulcerative lesion of the right tonsillar area with a mass of the oropharyngeal space on the right suspicious for malignancy. Furthermore, a CAT scan of the neck was done and showed extensive ulceration of the right tonsillar bed with involvement of the floor of the mouth and extending to the right pterygoid muscle down to the right hypopharynx with mass effect on the epiglottis. There was also involvement of the false vocal cord on the right. The mass did invade the carotid space.. The patient was seen by hematology oncology and radiation therapy. A PEG tube was inserted for nutritional support. The patient completed radiation therapy. He was also started on systemic chemotherapy. This morning, the patient acutely had massive amount of blood being coughed. No epistaxis. No previous history of hemoptysis. Bleeding is felt to be the cancerous area involving the right tonsillar bed. The patient was cough and a large quantities of clots and similar pieces were extracted from his oropharynx. In the [facility] department his initial pulse ox was 75%. He was hypotensive and tachycardic. He was unable to fully open up his mouth due to radiation-induced scarring/fibrosis and contractures. He is edentulous. The tonsillar bed is quite irregular. There is no active bleeding with a visible vessel on inspection. At the time of my a evaluation the patient was not having any active bleeding. He was however having on and off coughing would bring up of loose liquidy saliva and mucus material. The patient has not been on any blood thinners. No coagulopathy. No anticoagulation. A CAT scan of the neck was repeated and it showed that there is extensive inflammatory change in the bilateral greater maxillary sinuses, mastoid air cells show inflammatory change in the right, ethmoids show inflammatory changes, the airway was patent and a epiglottis was mildly thickened. There was an abnormal fluid collection that was seen on a previous examination and prominence of the base of the tongue on the right soft tissue and these findings were seen to have resolved. As such there was some improvement of the soft tissue abnormality and possible some necrotic focus seen within the area. Possibilities of ulceration of the tonsillar and meningeal mucosal space versus tumor was raised by the radiologist. In any rate , the patient will be admitted to the hospital for further monitoring. ENT evaluation will be requested on an emergent basis. I'm even considering a tracheostomy tube insertion on this patient to protect his airway and securities and airway should events like this occur. He is being given a unit of packed RBC for now. His hemodynamics is stable. Quite weak and cachectic. The voice is extremely hoarse and unable to swallow, receiving enteral feeding through PEG tube. No fever. No change in mental status. On 02/24/2017 the patient was seen in follow-up in the intensive care unit. He was nothing by mouth and he was awaiting his tracheostomy tube at a time of my evaluation this morning. He was still having excessive oral saliva the secretions. His cough is weak. There was obvious concern for aspiration. Swallow mechanisms poor as mentioned earlier. No active bleeding from his larynx or tonsillar bed overnight. Hemoglobin remains stable. He was hemodynamically stable. Based on that, and based on my earlier conversations with ENT, the patient was taken to the operating room and he had a tracheostomy tube insertion and postop the patient was seen in follow-up in the ICU and the patient has a #8 Shiley tracheostomy tube, a nonfenestrated. The procedure without without any complications. The patient has no active bleeding for now. Direct microscopic laryngoscopy was also done. The oropharyngeal area showed that there was small amount of clot in the right retromolar trigone region which appears to be the area that was bleeding previously. The ENT physician who did the procedure was unable to proceed much beyond the epiglottis. Total amount of bleeding during the procedure was less than 5 mL. Patient is doing well. No pain issues. No respiratory distress. On 02/25/2017 the patient is posterior chest with of insertion. On today's evaluation the patient is having a very foul smell which we think it's originating from his neck area. This was absent provided to tracheostomy tube insertion. Following the trach tube insertion and since last night the patient has been producing mild to moderate amount of purulent sputum and the same time there is a very foul smell in the room. Despite all this, the patient is not having any respiratory difficulties. He is resting comfortably in bed. Tracheostomy site is intact. The patient has a #[address] His mouth is clear. The patient is able to suction his saliva using a bedside suction. No fever. No chills. He is tolerating his tube feeds. No other issues otherwise for now. The patient is seen again today at 02/26/2017 on the oncology unit. He is awake and alert in no acute distress. He is maintaining good O2 saturations up to 100% on 28% trach collar. The very foul smelling odor from yesterday has subsided. Preliminary sputum culture reveals gram-negative bacilli and beta hemolytic strep group C. He is currently on Zosyn. His oral secretions have subsided. He was seen today by ENT who removed the retention sutures and faceplate. Trach site is healing well. On 02/27/2017, I'm seeing this patient in follow-up. Overall the foul smelling odor has completely subsided. The patient is however still having these rest or secretions from his tracheostomy tube. The sputum that was cultured earlier showed a combination of Klebsiella, Haemophilus influenza and beta hemolytic strep group C. This is a polymicrobial growth and all of the microorganisms are sensitive to Zosyn and this will be continued. The patient is tolerating his tube feeds. Cannot use a speaking valve as long as the patient is still having significant amount of orotracheal secretions. He is awake and alert. He is quite cachectic. Unable to speak as the tracheostomy cuff is inflated at this point. The patient has a #[address] Shiley [address]. Objective - Vital Signs Vital signs: Vital Signs Temp 98.5 F 02/27/17 07:00 Pulse 92 02/27/17 12:31 Resp 16 02/27/17 07:00 BP 115/59 02/27/17 07:00 Pulse Ox 99 02/27/17 07:00 Intake & Output 02/26/17 02/27/17 02/27/17 18:59 06:59 18:59 Intake Total 380 Output Total 250 600 Balance -250 -220 Weight 44.8 kg Intake: IV 80 Sodium Chloride 0.9% 1, 80 000 ml @ 10 mls/hr IV . Q24H MARYANNE Rx#:[id number] Oral 300 Output: Urine 250 600 - Exam Thin, frail, cachectic, malnourished, and mild degree of respiratory distress.Head exam was generally normal. There was no scleral icterus or corneal arcus. Mucous membranes were moist. The patient has a tracheostomy tube in place which is a #8 fenestrated Shiley tracheostomy tube. Neck shows some asymmetry with swelling and firmness along the superior cervical area on the right probably originating from the tonsillar bed. No lymphadenopathy. The overlying skin is discolored related to previous radiation therapy. Neck is supple. The patient is edentulous. Unable to fully open up his mouth. Posterior oropharyngeal examination shows irregular soft tissue, tonsillar bed and posterior hypopharynx of the right. No oropharyngeal thrush. Liquid the saliva-like material is seen in the posterior oropharynx. No blood clots were observed. Lungs are diminished breath sounds bilaterally. Scattered rhonchi. Scattered expiratory wheezes.Cardiac exam revealed the PMI to be normally situated and sized. The rhythm was regular and no extrasystoles were noted during several minutes of auscultation. The first and second heart sounds were normal and physiologic splitting of the second heart sound was noted. There were no murmurs, rubs, clicks, or gallops.Abdominal exam revealed normal bowel sounds. The abdomen was soft, non-tender, and without masses, organomegaly, or appreciable enlargement of the abdominal aorta. PEG tube site is clean dry and intact.Examination of the extremities revealed easily palpable radial, femoral and pedal pulses. There was no cyanosis, clubbing or edema. Neurologically the patient is awake and alert and following commands and answering questions. - Labs CBC & Chem 7: 02/27/17 07:05 02/27/17 07:05 Labs: Abnormal Lab Results - Last 24 Hours (Table) 02/26/17 02/27/17 02/27/17 Range/Units 17:53 01:10 06:25 RBC (4.30-5.90) m/uL Hgb (13.0-17.5) gm/dL Hct (39.0-53.0) % RDW (11.5-15.5) % Neutrophils # (1.3-7.7) k/uL Lymphocytes # (1.0-4.8) k/uL PT (9.0-12.0) sec INR (<1.2) Sodium (137-145) mmol/L Chloride (98-107) mmol/L Creatinine (0.66-1.25) mg/dL POC Glucose (mg/dL) 141 H 179 H 124 H (75-99) mg/dL Calcium (8.4-10.2) mg/dL 02/27/17 02/27/17 02/27/17 Range/Units 07:05 07:05 07:05 RBC 2.66 L (4.30-5.90) m/uL Hgb 8.0 L (13.0-17.5) gm/dL Hct 25.2 L (39.0-53.0) % RDW 17.7 H (11.5-15.5) % Neutrophils # 8.9 H (1.3-7.7) k/uL Lymphocytes # 0.2 L (1.0-4.8) k/uL PT 12.6 H (9.0-12.0) sec INR 1.3 H (<1.2) Sodium 130 L (137-145) mmol/L Chloride 97 L (98-107) mmol/L Creatinine 0.46 L (0.66-1.25) mg/dL POC Glucose (mg/dL) (75-99) mg/dL Calcium 8.1 L (8.4-10.2) mg/dL 02/27/17 Range/Units 12:21 RBC (4.30-5.90) m/uL Hgb (13.0-17.5) gm/dL Hct (39.0-53.0) % RDW (11.5-15.5) % Neutrophils # (1.3-7.7) k/uL Lymphocytes # (1.0-4.8) k/uL PT (9.0-12.0) sec INR (<1.2) Sodium (137-145) mmol/L Chloride (98-107) mmol/L Creatinine (0.66-1.25) mg/dL POC Glucose (mg/dL) 106 H (75-99) mg/dL Calcium (8.4-10.2) mg/dL Microbiology - Last 24 Hours (Table) 02/25/17 11:03 Gram Stain - Final Sputum Sputum Culture - Final Klebsiella oxytoca Beta Hemolytic Strep Group C Haemophilus influenzae Assessment and Plan Plan: Assessment 1 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 Status post radiation therapy currently undergoing systemic chemotherapy 2 acute bleeding from the retromolar trigone which was involved with squamous cell carcinoma. The patient was treated with radiation therapy and he was currently undergoing systemic chemotherapy. There was concern of his ability to maintain airway patency and there was concern of recurrent bleed. For that reason, a tracheostomy tube was inserted by ENT today and the patient has a #8 Shiley tracheostomy tube, fenestrated. The surgery was done without any complications. 3 COPD 4 acute tracheal bronchitis with polymicrobial growth including Klebsiella, strep and Haemophilus. The patient is currently on IV Zosyn. The foul smelling odor has completely subsided. The patient is still having increased it for secretions. Unable to The tracheostomy tube yet nor use any sputum valve. 5 dysphagia secondary to above currently receiving enteral feeding through PEG tube 6 nephrolithiasis with previous history of hydronephrosis 7 history of alcoholism/smoker 8 hyperglycemia, we'll start insulin/care coverage 9 enteral feeding for nutritional support through a PEG tube. 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 Tracheostomy site is clean and intact. Into the IV Zosyn for diffuse acute bronchitis. Continue enteral feeding for nutritional support. The patient is progressing as expected after the tracheostomy. He is still bringing up large amount of sputum and is requiring frequent suctioning. Respiratory is performing his pulmonary toileting. He is weak. He will need rehabilitation. Oncology is on the case. We'll continue to follow.
[2017-02-27 17:03] LABS: Glucose,Whole Blood 178 mg/dL (75-99)
[2017-02-27] MEDS: SODIUM CHLORIDE 0.9% 1,000 ML IV SCH (21:21)
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
--- NOTE | 2017-02-27 22:47 | PN ---
DATE OF SERVICE: 02/26/17 CHIEF COMPLAINT: Shortness of breath. Vipin is seen today as a follow-up. He has some exertional dyspnea and feels tired. He has no more hemoptysis which seems like it has subsided. On physical examination, he is alert and oriented times three. He communicates by writing. HEENT: Atraumatic, normocephalic. Neck: Tracheostomy site appears intact. Neck supple. Chest: Clear to auscultation bilaterally. Lungs are clear. Heart is regular. Abdomen is soft, nontenderness. Extremities: No edema. LABORATORY DATA: WBC 11.4, hemoglobin 9.3, hematocrit 27.1. Platelets 375. IMPRESSION: 1. Hemoptysis appears to be evaluated by ENT and felt to be acute place from ( ) molar trigone. For that reason, a tracheostomy was inserted by ENT. 2. Advanced head and neck squamous cell carcinoma. He recently completed chemo and radiation therapy with utilization of weekly cistatin along with radiation. RECOMMENDATIONS: 1. Monitor CBC for now. 2. Continue current care and medication as directed also by ENT. 3. The patient will follow up with Dr. Ramirez upon discharge. [place]
[2017-02-28 00:52] LABS: Glucose,Whole Blood 152 mg/dL (75-99)
[2017-02-28] MEDS: INSULIN LISPRO (humaLOG) 300 UNIT/3 ML VIAL SQ SCH ×4 (00:52→17:59)
[2017-02-28] MEDS: MORPHINE SULFATE 2 MG/ML SYRINGE IV PRN ×8 (02:18→21:45)
[2017-02-28 06:14] LABS: Glucose,Whole Blood 156 mg/dL (75-99)
[2017-02-28 07:51] LABS: Anion Gap 4 mmol/L; Blood Urea Nitrogen 10 mg/dL (9-20); Calcium 8.1 mg/dL (8.4-10.2); Carbon Dioxide 30 mmol/L (22-30); Chloride 98 mmol/L (98-107); Glucose 97 mg/dL (74-99); Magnesium 1.7 mg/dL (1.6-2.3); Non-African American GFR(MDRD) >60 (>60 ml/min/1.73 sqM); Phosphorous 3.2 mg/dL (2.5-4.5); Potassium 4.1 mmol/L (3.5-5.1); Sodium 132 mmol/L (137-145)
[2017-02-28] MEDS: PIPERACILLIN-TAZOBACTAM 3.375 GM in DEXTROSE/WATER 1 50ML.BAG IVPB SCH ×2 (08:15→16:26)
[2017-02-28 08:44] LABS: Anisocytosis Slight; Aty Lym Flag Slight; CH 29.4; CHCM 31.5; HCT 23.8 % (39.0-53.0); HDW 2.78; HGB 7.6 gm/dL (13.0-17.5); Hypochromasia Slight; MCH 30.1 pg (25.0-35.0); MCHC 32.1 g/dL (31.0-37.0); MCV 93.8 fL (80.0-100.0); Mean Platelet Volume 7.3; RBC 2.53 m/uL (4.30-5.90); RDW 17.4 % (11.5-15.5); WBC 7.2 k/uL (3.8-10.6); WBC (Perox) 7.36
[2017-02-28] MEDS: IPRATROPIUM-ALBUTEROL 3 ML NEB INHALATION SCH ×4 (09:04→19:26)
[2017-02-28] MEDS: PANTOPRAZOLE 40 MG/10 ML VIAL IV SCH (09:39)
--- NOTE | 2017-02-28 10:32 | CDI ---
In responding to this query, please exercise your independent professional judgment. The [facility] Coding Staff and Clinical Documentation Specialists appreciate your assistance in clarifying documentation, maintaining compliance with coding guidelines, accurately documenting patients condition and capturing severity of illness. The fact that a question is asked does not imply that any particular answer is desired or expected. Communication forms are a method of clarifying documentation and are not made part of the Legal Health Record. Thank you in advance for your clarification. Last Revision, May 2015 Alex Gaines [address] [place] [address] Documentation Clarification Form Date: 02/28/2017 10:14:00 AM From: Heather Seay CCS, CCDS Admit Date: 02/23/2017 4:11:00 PM Patient Name: Vipin Moreno Visit Number: [id number] Discharge Date: Dr. Brad George: 62 yo male admitted with bleeding from his throat area, currently being treated with chemotherapy for carcinoma of the right tonsil. Current smoker. 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 COPD. Clinical Indicators: Dysphagia, weight loss, difficulty maintaining nutrition. PEG tube previously inserted. Labs: Total Protein 6.0, Albumin 3.3 Current BMI: 19.4, 18.5 per nutritional assessment, 86% of ideal body weight. Treatment: Increase nutrients, Daily weights, Monitor I/O, Gastric feeding, IV fluid bolus, IV Mag Sulf. Consults: Dietitian, Pulmonary, Oncology, ENT In your professional opinion, can you please clarify if these findings signify one of the following conditions? Mild Protein Malnutrition Mild Protein-Calorie Malnutrition Moderate Protein Malnutrition Moderate Protein-Calorie Malnutrition Severe Protein Malnutrition Severe Protein-Calorie Malnutrition Malnutrition following GI surgery (has PEG tube) Other condition, please specify Unable to determine Please document in your progress notes and discharge summary in order to capture severity of illness and risk of mortality. Include clinical findings that support your diagnosis. FYI: Press F11 to launch patient chart. [place]
[2017-02-28 10:57] LABS: Add Differential Manual Differential
[2017-02-28 10:58] LABS: Nucleated Red Blood Cells 0 /100 WBC (0-0); Total Cells Counted 100
[2017-02-28 11:01] LABS: Target Cells Present
[2017-02-28 11:04] LABS: Glucose,Whole Blood 147 mg/dL (75-99)
--- NOTE | 2017-02-28 11:26 | P.PN ---
Subjective A 62-year-old male patient who presented to the emergency department this morning because of cough and also copious amount of bright red blood. 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 He presented to the hospital approximately 3 months ago with difficulty in swallowing and weight loss, unintentional. He is a heavy smoker. The patient had also voice change. ENT evaluation was done and the patient was found to have ulcerative lesion of the right tonsillar area with a mass of the oropharyngeal space on the right suspicious for malignancy. Furthermore, a CAT scan of the neck was done and showed extensive ulceration of the right tonsillar bed with involvement of the floor of the mouth and extending to the right pterygoid muscle down to the right hypopharynx with mass effect on the epiglottis. There was also involvement of the false vocal cord on the right. The mass did invade the carotid space.. The patient was seen by hematology oncology and radiation therapy. A PEG tube was inserted for nutritional support. The patient completed radiation therapy. He was also started on systemic chemotherapy. This morning, the patient acutely had massive amount of blood being coughed. No epistaxis. No previous history of hemoptysis. Bleeding is felt to be the cancerous area involving the right tonsillar bed. The patient was cough and a large quantities of clots and similar pieces were extracted from his oropharynx. In the [facility] department his initial pulse ox was 75%. He was hypotensive and tachycardic. He was unable to fully open up his mouth due to radiation-induced scarring/fibrosis and contractures. He is edentulous. The tonsillar bed is quite irregular. There is no active bleeding with a visible vessel on inspection. At the time of my a evaluation the patient was not having any active bleeding. He was however having on and off coughing would bring up of loose liquidy saliva and mucus material. The patient has not been on any blood thinners. No coagulopathy. No anticoagulation. A CAT scan of the neck was repeated and it showed that there is extensive inflammatory change in the bilateral greater maxillary sinuses, mastoid air cells show inflammatory change in the right, ethmoids show inflammatory changes, the airway was patent and a epiglottis was mildly thickened. There was an abnormal fluid collection that was seen on a previous examination and prominence of the base of the tongue on the right soft tissue and these findings were seen to have resolved. As such there was some improvement of the soft tissue abnormality and possible some necrotic focus seen within the area. Possibilities of ulceration of the tonsillar and meningeal mucosal space versus tumor was raised by the radiologist. In any rate , the patient will be admitted to the hospital for further monitoring. ENT evaluation will be requested on an emergent basis. I'm even considering a tracheostomy tube insertion on this patient to protect his airway and securities and airway should events like this occur. He is being given a unit of packed RBC for now. His hemodynamics is stable. Quite weak and cachectic. The voice is extremely hoarse and unable to swallow, receiving enteral feeding through PEG tube. No fever. No change in mental status. On 02/24/2017 the patient was seen in follow-up in the intensive care unit. He was nothing by mouth and he was awaiting his tracheostomy tube at a time of my evaluation this morning. He was still having excessive oral saliva the secretions. His cough is weak. There was obvious concern for aspiration. Swallow mechanisms poor as mentioned earlier. No active bleeding from his larynx or tonsillar bed overnight. Hemoglobin remains stable. He was hemodynamically stable. Based on that, and based on my earlier conversations with ENT, the patient was taken to the operating room and he had a tracheostomy tube insertion and postop the patient was seen in follow-up in the ICU and the patient has a #8 Shiley tracheostomy tube, a nonfenestrated. The procedure without without any complications. The patient has no active bleeding for now. Direct microscopic laryngoscopy was also done. The oropharyngeal area showed that there was small amount of clot in the right retromolar trigone region which appears to be the area that was bleeding previously. The ENT physician who did the procedure was unable to proceed much beyond the epiglottis. Total amount of bleeding during the procedure was less than 5 mL. Patient is doing well. No pain issues. No respiratory distress. On 02/25/2017 the patient is posterior chest with of insertion. On today's evaluation the patient is having a very foul smell which we think it's originating from his neck area. This was absent provided to tracheostomy tube insertion. Following the trach tube insertion and since last night the patient has been producing mild to moderate amount of purulent sputum and the same time there is a very foul smell in the room. Despite all this, the patient is not having any respiratory difficulties. He is resting comfortably in bed. Tracheostomy site is intact. The patient has a #[address] His mouth is clear. The patient is able to suction his saliva using a bedside suction. No fever. No chills. He is tolerating his tube feeds. No other issues otherwise for now. The patient is seen again today at 02/26/2017 on the oncology unit. He is awake and alert in no acute distress. He is maintaining good O2 saturations up to 100% on 28% trach collar. The very foul smelling odor from yesterday has subsided. Preliminary sputum culture reveals gram-negative bacilli and beta hemolytic strep group C. He is currently on Zosyn. His oral secretions have subsided. He was seen today by ENT who removed the retention sutures and faceplate. Trach site is healing well. On 02/27/2017, I'm seeing this patient in follow-up. Overall the foul smelling odor has completely subsided. The patient is however still having these rest or secretions from his tracheostomy tube. The sputum that was cultured earlier showed a combination of Klebsiella, Haemophilus influenza and beta hemolytic strep group C. This is a polymicrobial growth and all of the microorganisms are sensitive to Zosyn and this will be continued. The patient is tolerating his tube feeds. Cannot use a speaking valve as long as the patient is still having significant amount of orotracheal secretions. He is awake and alert. He is quite cachectic. Unable to speak as the tracheostomy cuff is inflated at this point. The patient has a #[address] tube [address]. On 02/28/2017 the patient is seen again today in follow-up on the oncology unit. He is awake and alert in no acute distress. His maintaining good O2 saturations up to 100% on 20% trach collar. He's been afebrile. No leukocytosis. Hemodynamically stable. He is maintained on Zosyn. His cultures were positive for Klebsiella oxytoca, beta hemolytic strep group C, Haemophilus influenza. Objective - Vital Signs Vital signs: Vital Signs Temp 98.2 F 02/28/17 07:00 Pulse 90 02/28/17 09:18 Resp 18 02/28/17 07:00 BP 122/60 02/28/17 07:00 Pulse Ox 100 02/28/17 07:00 Intake & Output 02/27/17 02/28/17 02/28/17 18:59 06:59 18:59 Output Total 500 500 Balance -500 -500 Weight 48 kg Output: Urine 500 500 - Exam Thin, frail, cachectic, malnourished, and mild degree of respiratory distress.Head exam was generally normal. There was no scleral icterus or corneal arcus. Mucous membranes were moist. The patient has a tracheostomy tube in place which is a #8 fenestrated Shiley tracheostomy tube. Neck shows some asymmetry with swelling and firmness along the superior cervical area on the right probably originating from the tonsillar bed. No lymphadenopathy. The overlying skin is discolored related to previous radiation therapy. Neck is supple. The patient is edentulous. Unable to fully open up his mouth. Posterior oropharyngeal examination shows irregular soft tissue, tonsillar bed and posterior hypopharynx of the right. No oropharyngeal thrush. Liquid the saliva-like material is seen in the posterior oropharynx. No blood clots were observed. Lungs are diminished breath sounds bilaterally. Scattered rhonchi. Scattered expiratory wheezes.Cardiac exam revealed the PMI to be normally situated and sized. The rhythm was regular and no extrasystoles were noted during several minutes of auscultation. The first and second heart sounds were normal and physiologic splitting of the second heart sound was noted. There were no murmurs, rubs, clicks, or gallops.Abdominal exam revealed normal bowel sounds. The abdomen was soft, non-tender, and without masses, organomegaly, or appreciable enlargement of the abdominal aorta. PEG tube site is clean dry and intact.Examination of the extremities revealed easily palpable radial, femoral and pedal pulses. There was no cyanosis, clubbing or edema. Neurologically the patient is awake and alert and following commands and answering questions. - Labs CBC & Chem 7: 02/28/17 07:18 02/28/17 07:18 Labs: Abnormal Lab Results - Last 24 Hours (Table) 02/27/17 02/27/17 02/28/17 Range/Units 12:21 17:01 00:48 RBC (4.30-5.90) m/uL Hgb (13.0-17.5) gm/dL Hct (39.0-53.0) % RDW (11.5-15.5) % Lymphocytes # (Manual) (1.0-4.8) k/uL Sodium (137-145) mmol/L Creatinine (0.66-1.25) mg/dL POC Glucose (mg/dL) 106 H 178 H 152 H (75-99) mg/dL Calcium (8.4-10.2) mg/dL 02/28/17 02/28/17 02/28/17 Range/Units 06:11 07:18 07:18 RBC 2.53 L (4.30-5.90) m/uL Hgb 7.6 L (13.0-17.5) gm/dL Hct 23.8 L (39.0-53.0) % RDW 17.4 H (11.5-15.5) % Lymphocytes # (Manual) 0.07 L (1.0-4.8) k/uL Sodium 132 L (137-145) mmol/L Creatinine 0.46 L (0.66-1.25) mg/dL POC Glucose (mg/dL) 156 H (75-99) mg/dL Calcium 8.1 L (8.4-10.2) mg/dL 02/28/17 Range/Units 11:01 RBC (4.30-5.90) m/uL Hgb (13.0-17.5) gm/dL Hct (39.0-53.0) % RDW (11.5-15.5) % Lymphocytes # (Manual) (1.0-4.8) k/uL Sodium (137-145) mmol/L Creatinine (0.66-1.25) mg/dL POC Glucose (mg/dL) 147 H (75-99) mg/dL Calcium (8.4-10.2) mg/dL Microbiology - Last 24 Hours (Table) 02/25/17 11:03 Gram Stain - Final Sputum Sputum Culture - Final Klebsiella oxytoca Beta Hemolytic Strep Group C Haemophilus influenzae Assessment and Plan Plan: Assessment 1 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 Status post radiation therapy currently undergoing systemic chemotherapy 2 acute bleeding from the retromolar trigone which was involved with squamous cell carcinoma. The patient was treated with radiation therapy and he was currently undergoing systemic chemotherapy. There was concern of his ability to maintain airway patency and there was concern of recurrent bleed. For that reason, a tracheostomy tube was inserted by ENT and the patient has a #8 Shiley tracheostomy tube, fenestrated. The surgery was done without any complications. 3 COPD 4 acute tracheal bronchitis suspected with excess amount of foul smell from his tracheostomy tube. Could be also an infected necrotic tumor within the posterior oropharynx and retromolar trigone area. CAT scan of the neck was done earlier. No evidence of any abscess formation. Sputum sample was positive for Klebsiella oxytoca, beta-hemolytic strep group C, Haemophilus influenza. He remains on Zosyn. 5 dysphagia secondary to above currently receiving enteral feeding through PEG tube 6 nephrolithiasis with previous history of hydronephrosis 7 history of alcoholism/smoker 8 hyperglycemia, we'll start insulin/care coverage 9 enteral feeding for nutritional support through a PEG tube. 10 cachexia Plan The patient was seen and evaluated by Dr. Yanes. He'll continue on Zosyn for now. He is tolerating his tube feeds via the PEG tube. Continue with his current medications including bronchodilators. We'll continue to follow.
[2017-02-28 17:43] LABS: Glucose,Whole Blood 132 mg/dL (75-99)
[2017-02-28] MEDS: SODIUM CHLORIDE 0.9% 1,000 ML IV SCH (19:47)
--- NOTE | 2017-02-28 20:10 | PN ---
DATE OF SERVICE: 02/27/2017 CHIEF COMPLAINT: CA of the tonsil. HPI: This gentleman is reasonably comfortable and there has been no further bleeding. Trach is being managed fairly well. PHYSICAL EXAM: Sputum is clear. Breath sound are diminished on both sides. Cardiac exam is normal. IMPRESSION: 1. Status post tracheostomy. 2. CA of the tonsil. PLAN: Await discharge arrangements. LA
--- NOTE | 2017-02-28 20:32 | PN ---
DATE OF SERVICE: 02/28/17 CHIEF COMPLAINT: Status post trach for CA of the tonsil with hemorrhage. HISTORY OF PRESENT ILLNESS: This gentleman is fairly comfortable and things have been stable. PHYSICAL EXAMINATION: Breath sounds are poor but they are present bilaterally. Cardiac exam demonstrates sinus rhythm. IMPRESSION: 1. Status post tracheostomy. 2. Carcinoma of the tonsil with hemorrhage. PLAN: Continue with current treatment until discharge arrangements are made. LA
--- NOTE | 2017-02-28 21:09 | HP ---
DATE OF ADMISSION: 02/23/2017 CHIEF COMPLAINT: Blood spitting. HISTORY OF PRESENT ILLNESS: This is another admission for this 62-year-old white male who has been diagnosed and is being treated for carcinoma of the tonsil. He has been getting treatments and holding his own, but suddenly he started to cough up large amount of bright red blood and came to the emergency room. He is having any difficulty breathing. He was admitted. REVIEW OF SYSTEMS: He has had no neurologic changes, stroke-like symptoms, change in vision or hearing, chest pain, abdominal pain, nausea, vomiting, etc. Past medical history, family history and personal and social histories are all unchanged from his recent admitting and discharge summaries. HE IS NOT ALLERGIC TO ANY MEDICATION. He has been on: 1. Miralax. 2. Zofran. 3. Morphine. His morphine concentrate has been 20 mg/mL, 0.25 mL 4 times a day. PHYSICAL EXAMINATION: Blood pressure is 100/60 with a pulse of 103, respirations of 28. He is afebrile. In general, he appeared to be chronically ill, pale and malnourished. Skin is dry. Head, ears, eyes, nose, mouth and throat were normal. Neck veins were not distended. Chest demonstrated increased A/P diameter with poor breath sounds. There were no rales or rhonchi. Cardiac exam demonstrated sinus rhythm. ABDOMEN: Soft, non-tender without any masses or visceromegaly. Extremities were normal. Neurologically he was intact. 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 PLAN: 1. Bedrest. 2. IV fluids. 3. Consult Pulmonology and ENT. LA
[2017-03-01] MEDS: PIPERACILLIN-TAZOBACTAM 3.375 GM in DEXTROSE/WATER 1 50ML.BAG IVPB SCH ×4 (00:10→23:54)
[2017-03-01] MEDS: MORPHINE SULFATE 2 MG/ML SYRINGE IV PRN ×8 (00:10→23:54)
[2017-03-01 01:36] LABS: Glucose,Whole Blood 140 mg/dL (75-99)
[2017-03-01] MEDS: INSULIN LISPRO (humaLOG) 300 UNIT/3 ML VIAL SQ SCH ×5 (01:40→23:57)
[2017-03-01 06:04] LABS: Glucose,Whole Blood 171 mg/dL (75-99)
[2017-03-01] MEDS: IPRATROPIUM-ALBUTEROL 3 ML NEB INHALATION SCH ×4 (07:14→20:21)
[2017-03-01 11:14] LABS: Glucose,Whole Blood 152 mg/dL (75-99)
[2017-03-01] MEDS: PANTOPRAZOLE 40 MG/10 ML VIAL IV SCH (12:46)
--- NOTE | 2017-03-01 13:02 | P.PN ---
Subjective A 62-year-old male patient who presented to the emergency department this morning because of cough and also copious amount of bright red blood. 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 He presented to the hospital approximately 3 months ago with difficulty in swallowing and weight loss, unintentional. He is a heavy smoker. The patient had also voice change. ENT evaluation was done and the patient was found to have ulcerative lesion of the right tonsillar area with a mass of the oropharyngeal space on the right suspicious for malignancy. Furthermore, a CAT scan of the neck was done and showed extensive ulceration of the right tonsillar bed with involvement of the floor of the mouth and extending to the right pterygoid muscle down to the right hypopharynx with mass effect on the epiglottis. There was also involvement of the false vocal cord on the right. The mass did invade the carotid space.. The patient was seen by hematology oncology and radiation therapy. A PEG tube was inserted for nutritional support. The patient completed radiation therapy. He was also started on systemic chemotherapy. This morning, the patient acutely had massive amount of blood being coughed. No epistaxis. No previous history of hemoptysis. Bleeding is felt to be the cancerous area involving the right tonsillar bed. The patient was cough and a large quantities of clots and similar pieces were extracted from his oropharynx. In the [facility] department his initial pulse ox was 75%. He was hypotensive and tachycardic. He was unable to fully open up his mouth due to radiation-induced scarring/fibrosis and contractures. He is edentulous. The tonsillar bed is quite irregular. There is no active bleeding with a visible vessel on inspection. At the time of my a evaluation the patient was not having any active bleeding. He was however having on and off coughing would bring up of loose liquidy saliva and mucus material. The patient has not been on any blood thinners. No coagulopathy. No anticoagulation. A CAT scan of the neck was repeated and it showed that there is extensive inflammatory change in the bilateral greater maxillary sinuses, mastoid air cells show inflammatory change in the right, ethmoids show inflammatory changes, the airway was patent and a epiglottis was mildly thickened. There was an abnormal fluid collection that was seen on a previous examination and prominence of the base of the tongue on the right soft tissue and these findings were seen to have resolved. As such there was some improvement of the soft tissue abnormality and possible some necrotic focus seen within the area. Possibilities of ulceration of the tonsillar and meningeal mucosal space versus tumor was raised by the radiologist. In any rate , the patient will be admitted to the hospital for further monitoring. ENT evaluation will be requested on an emergent basis. I'm even considering a tracheostomy tube insertion on this patient to protect his airway and securities and airway should events like this occur. He is being given a unit of packed RBC for now. His hemodynamics is stable. Quite weak and cachectic. The voice is extremely hoarse and unable to swallow, receiving enteral feeding through PEG tube. No fever. No change in mental status. On 02/24/2017 the patient was seen in follow-up in the intensive care unit. He was nothing by mouth and he was awaiting his tracheostomy tube at a time of my evaluation this morning. He was still having excessive oral saliva the secretions. His cough is weak. There was obvious concern for aspiration. Swallow mechanisms poor as mentioned earlier. No active bleeding from his larynx or tonsillar bed overnight. Hemoglobin remains stable. He was hemodynamically stable. Based on that, and based on my earlier conversations with ENT, the patient was taken to the operating room and he had a tracheostomy tube insertion and postop the patient was seen in follow-up in the ICU and the patient has a #8 Shiley tracheostomy tube, a nonfenestrated. The procedure without without any complications. The patient has no active bleeding for now. Direct microscopic laryngoscopy was also done. The oropharyngeal area showed that there was small amount of clot in the right retromolar trigone region which appears to be the area that was bleeding previously. The ENT physician who did the procedure was unable to proceed much beyond the epiglottis. Total amount of bleeding during the procedure was less than 5 mL. Patient is doing well. No pain issues. No respiratory distress. On 02/25/2017 the patient is posterior chest with of insertion. On today's evaluation the patient is having a very foul smell which we think it's originating from his neck area. This was absent provided to tracheostomy tube insertion. Following the trach tube insertion and since last night the patient has been producing mild to moderate amount of purulent sputum and the same time there is a very foul smell in the room. Despite all this, the patient is not having any respiratory difficulties. He is resting comfortably in bed. Tracheostomy site is intact. The patient has a #[address] His mouth is clear. The patient is able to suction his saliva using a bedside suction. No fever. No chills. He is tolerating his tube feeds. No other issues otherwise for now. The patient is seen again today at 02/26/2017 on the oncology unit. He is awake and alert in no acute distress. He is maintaining good O2 saturations up to 100% on 28% trach collar. The very foul smelling odor from yesterday has subsided. Preliminary sputum culture reveals gram-negative bacilli and beta hemolytic strep group C. He is currently on Zosyn. His oral secretions have subsided. He was seen today by ENT who removed the retention sutures and faceplate. Trach site is healing well. On 02/27/2017, I'm seeing this patient in follow-up. Overall the foul smelling odor has completely subsided. The patient is however still having these rest or secretions from his tracheostomy tube. The sputum that was cultured earlier showed a combination of Klebsiella, Haemophilus influenza and beta hemolytic strep group C. This is a polymicrobial growth and all of the microorganisms are sensitive to Zosyn and this will be continued. The patient is tolerating his tube feeds. Cannot use a speaking valve as long as the patient is still having significant amount of orotracheal secretions. He is awake and alert. He is quite cachectic. Unable to speak as the tracheostomy cuff is inflated at this point. The patient has a #[address] On 02/28/2017 the patient is seen again today in follow-up on the oncology unit. He is awake and alert in no acute distress. His maintaining good O2 saturations up to 100% on 20% trach collar. He's been afebrile. No leukocytosis. Hemodynamically stable. He is maintained on Zosyn. His cultures were positive for Klebsiella oxytoca, beta hemolytic strep group C, Haemophilus influenza. The patient is seen again today in follow-up 03/01/2017 on the oncology unit. He remains awake and alert in no acute distress. He continues to maintain good O2 saturations in the 90s on 28% trach collar. He remains afebrile. Hemodynamically stable. No pulmonary complaints. Objective - Vital Signs Vital signs: Vital Signs Temp 98.3 F 03/01/17 07:00 Pulse 96 03/01/17 12:39 Resp 18 03/01/17 08:00 BP 132/67 03/01/17 07:00 Pulse Ox 100 03/01/17 07:00 Intake & Output 02/28/17 03/01/17 03/01/17 18:59 06:59 18:59 Intake Total 50 130 60 Output Total 500 700 600 Balance -450 -570 -540 Weight 48 kg 46.3 kg Intake: IV 80 Sodium Chloride 0.9% 1, 80 000 ml @ 10 mls/hr IV . Q24H MARYANNE Rx#:[id number] Intake, IV Titration 50 50 Amount Piperacillin-Tazobactam 3 50 50 .375 gm In Dextrose/Water 1 50ml.bag @ 12.5 mls/hr IVPB Q8HR MARYANNE Rx#: [id number] Oral 60 Output: Urine 500 700 600 Other: # Voids 2 - Exam Thin, frail, cachectic, malnourished, in no respiratory distress.Head exam was generally normal. There was no scleral icterus or corneal arcus. Mucous membranes were moist. The patient has a tracheostomy tube in place which is a # 8 fenestrated Shiley tracheostomy tube. Neck shows some asymmetry with swelling and firmness along the superior cervical area on the right probably originating from the tonsillar bed. No lymphadenopathy. The overlying skin is discolored related to previous radiation therapy. Neck is supple. The patient is edentulous. Unable to fully open up his mouth. Posterior oropharyngeal examination shows irregular soft tissue, tonsillar bed and posterior hypopharynx of the right. Lungs are diminished breath sounds bilaterally. Scattered rhonchi. Cardiac exam revealed the PMI to be normally situated and sized. The rhythm was regular and no extrasystoles were noted during several minutes of auscultation. The first and second heart sounds were normal and physiologic splitting of the second heart sound was noted. There were no murmurs , rubs, clicks, or gallops.Abdominal exam revealed normal bowel sounds. The abdomen was soft, non-tender, and without masses, organomegaly, or appreciable enlargement of the abdominal aorta. PEG tube site is clean dry and intact Examination of the extremities revealed easily palpable radial, femoral and pedal pulses. There was no cyanosis, clubbing or edema. Neurologically the patient is awake and alert and following commands and answering questions. - Labs CBC & Chem 7: 02/28/17 07:18 02/28/17 07:18 Labs: Abnormal Lab Results - Last 24 Hours (Table) 02/28/17 03/01/17 03/01/17 Range/Units 17:41 01:35 06:02 POC Glucose (mg/dL) 132 H 140 H 171 H (75-99) mg/dL 03/01/17 Range/Units 11:12 POC Glucose (mg/dL) 152 H (75-99) mg/dL Assessment and Plan Plan: Assessment 1 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 Status post radiation therapy currently undergoing systemic chemotherapy 2 acute bleeding from the retromolar trigone which was involved with squamous cell carcinoma. The patient was treated with radiation therapy and he was currently undergoing systemic chemotherapy. There was concern of his ability to maintain airway patency and there was concern of recurrent bleed. For that reason, a tracheostomy tube was inserted by ENT and the patient has a #8 Shiley tracheostomy tube, fenestrated. The surgery was done without any complications. 3 COPD 4 acute tracheal bronchitis suspected with excess amount of foul smell from his tracheostomy tube. Could be also an infected necrotic tumor within the posterior oropharynx and retromolar trigone area. CAT scan of the neck was done earlier. No evidence of any abscess formation. Sputum sample was positive for Klebsiella oxytoca, beta-hemolytic strep group C, Haemophilus influenza. He remains on Zosyn. 5 dysphagia secondary to above currently receiving enteral feeding through PEG tube 6 nephrolithiasis with previous history of hydronephrosis 7 history of alcoholism/smoker 8 hyperglycemia, we'll start insulin/care coverage 9 enteral feeding for nutritional support through a PEG tube. 10 cachexia Plan The patient was seen and evaluated by Dr. Yanes. Continue Zosyn. He is tolerating his tube feeds via the PEG tube. Continue with his current medications including bronchodilators. We will increase his activity as tolerated. He is stable from the pulmonary and critical care standpoint. We' ll continue to follow.
[2017-03-01 13:21] LABS: Anisocytosis Slight; Basophils % (A) 0 %; CHCM 31.1; Eosinophils # (A) 0.1 k/uL (0-0.7); Eosinophils % (A) 2 %; HDW 2.75; HGB 8.8 gm/dL (13.0-17.5); Hypochromasia Slight; Luc # (Auto) 0.21; Luc % (Auto) 3; Lymphocytes # (A) 0.2 k/uL (1.0-4.8); Lymphocytes % (A) 4 %; MCH 29.5 pg (25.0-35.0); MCHC 30.5 g/dL (31.0-37.0); MCV 96.8 fL (80.0-100.0); Macrocytosis Slight; Mean Platelet Volume 7.6; Monocytes # (A) 0.6 k/uL (0-1.0); Monocytes % (A) 10 %; Neutrophils # (A) 5.2 k/uL (1.3-7.7); Neutrophils % (A) 81 %; RDW 17.8 % (11.5-15.5); WBC 6.4 k/uL (3.8-10.6); WBC (Perox) 7.21
[2017-03-01 13:32] LABS: Anion Gap 9 mmol/L; Blood Urea Nitrogen 9 mg/dL (9-20); Calcium 8.9 mg/dL (8.4-10.2); Carbon Dioxide 26 mmol/L (22-30); Chloride 100 mmol/L (98-107); Glucose 107 mg/dL (74-99); Non-African American GFR(MDRD) >60 (>60 ml/min/1.73 sqM); Potassium 4.5 mmol/L (3.5-5.1); Sodium 135 mmol/L (137-145)
[2017-03-01 16:59] LABS: Glucose,Whole Blood 111 mg/dL (75-99)
[2017-03-01] MEDS: SODIUM CHLORIDE 0.9% 1,000 ML IV SCH (18:37)
[2017-03-01 23:55] LABS: Glucose,Whole Blood 131 mg/dL (75-99)
[2017-03-02] MEDS: MORPHINE SULFATE 2 MG/ML SYRINGE IV PRN ×7 (04:02→22:14)
[2017-03-02 05:59] LABS: Glucose,Whole Blood 143 mg/dL (75-99)
[2017-03-02] MEDS: INSULIN LISPRO (humaLOG) 300 UNIT/3 ML VIAL SQ SCH ×3 (06:06→18:30)
[2017-03-02] MEDS: PIPERACILLIN-TAZOBACTAM 3.375 GM in DEXTROSE/WATER 1 50ML.BAG IVPB SCH ×2 (07:42→14:53)
[2017-03-02] MEDS: PANTOPRAZOLE 40 MG/10 ML VIAL IV SCH (07:45)
[2017-03-02] MEDS: IPRATROPIUM-ALBUTEROL 3 ML NEB INHALATION SCH ×4 (08:20→18:40)
--- NOTE | 2017-03-02 10:15 | CDI ---
In responding to this query, please exercise your independent professional judgment. The [facility] Coding Staff and Clinical Documentation Specialists appreciate your assistance in clarifying documentation, maintaining compliance with coding guidelines, accurately documenting patients condition and capturing severity of illness. The fact that a question is asked does not imply that any particular answer is desired or expected. Communication forms are a method of clarifying documentation and are not made part of the Legal Health Record. Thank you in advance for your clarification. Last Revision, September 2015 Alex Gaines [address] [facility] [place] [address] Documentation Clarification Form Date: 02/24/2017 12:06:00 PM Resubmitted to Pulmonary Service 03/02/17 From: Heather Seay CCS, CCDS Admit Date: 02/23/2017 4:11:00 PM Patient Name: Vipin Moreno Visit Number: [id number] Discharge Date: Dr. Vivien Tena: The patient presented with the following respiratory symptoms: Coughing up blood with clots, PO 75% enroute per EMS, large clots extracted from the oropharynx, was hypoxic, tachycardic & hypotensive. History of carcinoma of the tonsil, status post chemotherapy & radiation. Possible family history of throat cancer. Per the 02/23 pulmonary consult: The patient became hypoxic and he was in significant respiratory distress yet he was able to cough the blood clots and he maintain the patency of the airway. Clinical Indicators: Tobacco use: Current smoker and marijuana use, History of alcoholism. Vital signs: T 97.0, P 145, R 35, BP 100/55, PO 92 nrb Treatment: ICU, Telemetry, IV fluid bolus, Albuterol INH, IV Decadron, IV Tranexamic, IV Ms, IV Narcan, IV Dextrose Consults: Pulmonary, ENT In your professional opinion, can you please clarify if these findings signify one of the following conditions? Acuity: o Acute o Chronic o Acute on Chronic Respiratory Status: o Respiratory failure o Respiratory failure with hypercapnia o Respiratory failure with hypoxia o Acute Respiratory Distress o Other Diagnosis, please specify o Unable to determine Please document in your progress notes and discharge summary in order to capture severity of illness and risk of mortality. Include clinical findings that support your diagnosis. FYI: Press F11 to launch patient chart. MTDD
--- NOTE | 2017-03-02 10:19 | P.PN ---
Subjective A 62-year-old male patient who presented to the emergency department this morning because of cough and also copious amount of bright red blood. 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 He presented to the hospital approximately 3 months ago with difficulty in swallowing and weight loss, unintentional. He is a heavy smoker. The patient had also voice change. ENT evaluation was done and the patient was found to have ulcerative lesion of the right tonsillar area with a mass of the oropharyngeal space on the right suspicious for malignancy. Furthermore, a CAT scan of the neck was done and showed extensive ulceration of the right tonsillar bed with involvement of the floor of the mouth and extending to the right pterygoid muscle down to the right hypopharynx with mass effect on the epiglottis. There was also involvement of the false vocal cord on the right. The mass did invade the carotid space.. The patient was seen by hematology oncology and radiation therapy. A PEG tube was inserted for nutritional support. The patient completed radiation therapy. He was also started on systemic chemotherapy. This morning, the patient acutely had massive amount of blood being coughed. No epistaxis. No previous history of hemoptysis. Bleeding is felt to be the cancerous area involving the right tonsillar bed. The patient was cough and a large quantities of clots and similar pieces were extracted from his oropharynx. In the [facility] department his initial pulse ox was 75%. He was hypotensive and tachycardic. He was unable to fully open up his mouth due to radiation-induced scarring/fibrosis and contractures. He is edentulous. The tonsillar bed is quite irregular. There is no active bleeding with a visible vessel on inspection. At the time of my a evaluation the patient was not having any active bleeding. He was however having on and off coughing would bring up of loose liquidy saliva and mucus material. The patient has not been on any blood thinners. No coagulopathy. No anticoagulation. A CAT scan of the neck was repeated and it showed that there is extensive inflammatory change in the bilateral greater maxillary sinuses, mastoid air cells show inflammatory change in the right, ethmoids show inflammatory changes, the airway was patent and a epiglottis was mildly thickened. There was an abnormal fluid collection that was seen on a previous examination and prominence of the base of the tongue on the right soft tissue and these findings were seen to have resolved. As such there was some improvement of the soft tissue abnormality and possible some necrotic focus seen within the area. Possibilities of ulceration of the tonsillar and meningeal mucosal space versus tumor was raised by the radiologist. In any rate , the patient will be admitted to the hospital for further monitoring. ENT evaluation will be requested on an emergent basis. I'm even considering a tracheostomy tube insertion on this patient to protect his airway and securities and airway should events like this occur. He is being given a unit of packed RBC for now. His hemodynamics is stable. Quite weak and cachectic. The voice is extremely hoarse and unable to swallow, receiving enteral feeding through PEG tube. No fever. No change in mental status. On 02/24/2017 the patient was seen in follow-up in the intensive care unit. He was nothing by mouth and he was awaiting his tracheostomy tube at a time of my evaluation this morning. He was still having excessive oral saliva the secretions. His cough is weak. There was obvious concern for aspiration. Swallow mechanisms poor as mentioned earlier. No active bleeding from his larynx or tonsillar bed overnight. Hemoglobin remains stable. He was hemodynamically stable. Based on that, and based on my earlier conversations with ENT, the patient was taken to the operating room and he had a tracheostomy tube insertion and postop the patient was seen in follow-up in the ICU and the patient has a #8 Shiley tracheostomy tube, a nonfenestrated. The procedure without without any complications. The patient has no active bleeding for now. Direct microscopic laryngoscopy was also done. The oropharyngeal area showed that there was small amount of clot in the right retromolar trigone region which appears to be the area that was bleeding previously. The ENT physician who did the procedure was unable to proceed much beyond the epiglottis. Total amount of bleeding during the procedure was less than 5 mL. Patient is doing well. No pain issues. No respiratory distress. On 02/25/2017 the patient is posterior chest with of insertion. On today's evaluation the patient is having a very foul smell which we think it's originating from his neck area. This was absent provided to tracheostomy tube insertion. Following the trach tube insertion and since last night the patient has been producing mild to moderate amount of purulent sputum and the same time there is a very foul smell in the room. Despite all this, the patient is not having any respiratory difficulties. He is resting comfortably in bed. Tracheostomy site is intact. The patient has a #[address] His mouth is clear. The patient is able to suction his saliva using a bedside suction. No fever. No chills. He is tolerating his tube feeds. No other issues otherwise for now. The patient is seen again today at 02/26/2017 on the oncology unit. He is awake and alert in no acute distress. He is maintaining good O2 saturations up to 100% on 28% trach collar. The very foul smelling odor from yesterday has subsided. Preliminary sputum culture reveals gram-negative bacilli and beta hemolytic strep group C. He is currently on Zosyn. His oral secretions have subsided. He was seen today by ENT who removed the retention sutures and faceplate. Trach site is healing well. On 02/27/2017, I'm seeing this patient in follow-up. Overall the foul smelling odor has completely subsided. The patient is however still having these rest or secretions from his tracheostomy tube. The sputum that was cultured earlier showed a combination of Klebsiella, Haemophilus influenza and beta hemolytic strep group C. This is a polymicrobial growth and all of the microorganisms are sensitive to Zosyn and this will be continued. The patient is tolerating his tube feeds. Cannot use a speaking valve as long as the patient is still having significant amount of orotracheal secretions. He is awake and alert. He is quite cachectic. Unable to speak as the tracheostomy cuff is inflated at this point. The patient has a #[address] On 02/28/2017 the patient is seen again today in follow-up on the oncology unit. He is awake and alert in no acute distress. His maintaining good O2 saturations up to 100% on 20% trach collar. He's been afebrile. No leukocytosis. Hemodynamically stable. He is maintained on Zosyn. His cultures were positive for Klebsiella oxytoca, beta hemolytic strep group C, Haemophilus influenza. The patient is seen again today in follow-up 03/01/2017 on the oncology unit. He remains awake and alert in no acute distress. He continues to maintain good O2 saturations in the 90s on 28% trach collar. He remains afebrile. Hemodynamically stable. No pulmonary complaints. The patient is seen again today 03/02/2017 in follow-up on the oncology unit. He is resting quite comfortably in bed. He is awake and alert in no acute distress. He still has significant amount of copious secretions however he is able to effectively cough the mouth through the tracheostomy. He is maintaining good O2 saturations in the 90s on the 20% trach collar. He remains afebrile. He is continued on Zosyn. He is waiting placement for continued inpatient rehabilitation. Objective - Vital Signs Vital signs: Vital Signs Temp 98.1 F 03/02/17 07:00 Pulse 96 03/02/17 08:33 Resp 17 03/02/17 07:53 BP 118/58 03/02/17 07:00 Pulse Ox 100 03/02/17 07:00 Intake & Output 03/01/17 03/02/17 03/02/17 18:59 06:59 18:59 Intake Total 60 Output Total 600 500 Balance -540 -500 Weight 46.3 kg 46.7 kg Intake: Oral 60 Output: Urine 600 500 Other: Voiding Method Urinal # Voids 2 - Exam Thin, frail, cachectic, malnourished, in no respiratory distress. Head exam was generally normal. There was no scleral icterus or corneal arcus. Mucous membranes were moist. The patient has a tracheostomy tube in place which is a # 8 fenestrated Shiley tracheostomy tube. Neck shows some asymmetry with swelling and firmness along the superior cervical area on the right probably originating from the tonsillar bed. No lymphadenopathy. The overlying skin is discolored related to previous radiation therapy. Neck is supple. The patient is edentulous. Unable to fully open up his mouth. Posterior oropharyngeal examination shows irregular soft tissue, tonsillar bed and posterior hypopharynx of the right. Lungs are diminished breath sounds bilaterally. Scattered rhonchi. Cardiac exam revealed the PMI to be normally situated and sized. The rhythm was regular and no extrasystoles were noted during several minutes of auscultation. The first and second heart sounds were normal and physiologic splitting of the second heart sound was noted. There were no murmurs , rubs, clicks, or gallops.Abdominal exam revealed normal bowel sounds. The abdomen was soft, non-tender, and without masses, organomegaly, or appreciable enlargement of the abdominal aorta. PEG tube site is clean dry and intact Examination of the extremities revealed easily palpable radial, femoral and pedal pulses. There was no cyanosis, clubbing or edema. Neurologically the patient is awake and alert and following commands and answering questions. - Labs CBC & Chem 7: 03/01/17 13:00 03/01/17 13:00 Labs: Abnormal Lab Results - Last 24 Hours (Table) 03/01/17 03/01/17 03/01/17 Range/Units 11:12 13:00 13:00 RBC 3.00 L (4.30-5.90) m/uL Hgb 8.8 L (13.0-17.5) gm/dL Hct 29.0 L (39.0-53.0) % MCHC 30.5 L (31.0-37.0) g/dL RDW 17.8 H (11.5-15.5) % Plt Count 493 H (150-450) k/uL Lymphocytes # 0.2 L (1.0-4.8) k/uL Sodium 135 L (137-145) mmol/L Creatinine 0.50 L (0.66-1.25) mg/dL Glucose 107 H (74-99) mg/dL POC Glucose (mg/dL) 152 H (75-99) mg/dL 03/01/17 03/01/17 03/02/17 Range/Units 16:58 23:53 05:56 RBC (4.30-5.90) m/uL Hgb (13.0-17.5) gm/dL Hct (39.0-53.0) % MCHC (31.0-37.0) g/dL RDW (11.5-15.5) % Plt Count (150-450) k/uL Lymphocytes # (1.0-4.8) k/uL Sodium (137-145) mmol/L Creatinine (0.66-1.25) mg/dL Glucose (74-99) mg/dL POC Glucose (mg/dL) 111 H 131 H 143 H (75-99) mg/dL Assessment and Plan Plan: Assessment 1 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 Status post radiation therapy currently undergoing systemic chemotherapy 2 acute bleeding from the retromolar trigone which was involved with squamous cell carcinoma. The patient was treated with radiation therapy and he was currently undergoing systemic chemotherapy. There was concern of his ability to maintain airway patency and there was concern of recurrent bleed. For that reason, a tracheostomy tube was inserted by ENT and the patient has a #8 Shiley tracheostomy tube, fenestrated. The surgery was done without any complications. 3 COPD 4 acute tracheal bronchitis suspected with excess amount of foul smell from his tracheostomy tube. Could be also an infected necrotic tumor within the posterior oropharynx and retromolar trigone area. CAT scan of the neck was done earlier. No evidence of any abscess formation. Sputum sample was positive for Klebsiella oxytoca, beta-hemolytic strep group C, Haemophilus influenza. He remains on Zosyn. 5 dysphagia secondary to above currently receiving enteral feeding through PEG tube 6 nephrolithiasis with previous history of hydronephrosis 7 history of alcoholism/smoker 8 hyperglycemia, we'll start insulin/care coverage 9 enteral feeding for nutritional support through a PEG tube. 10 cachexia Plan The patient was seen and evaluated by Dr. Tena. Continue Zosyn. He is tolerating his tube feeds via the PEG tube. Continue with his current medications including bronchodilators. We will increase his activity as tolerated. He is stable from the pulmonary and critical care standpoint. He could be transferred to an extended care facility once a bed becomes available. We'll continue to follow.
--- NOTE | 2017-03-02 10:19 | CDI ---
In responding to this query, please exercise your independent professional judgment. The [facility] Coding Staff and Clinical Documentation Specialists appreciate your assistance in clarifying documentation, maintaining compliance with coding guidelines, accurately documenting patients condition and capturing severity of illness. The fact that a question is asked does not imply that any particular answer is desired or expected. Communication forms are a method of clarifying documentation and are not made part of the Legal Health Record. Thank you in advance for your clarification. Last Revision, May 2015 Alex Gaines [address] [place] [address] Documentation Clarification Form Resubmitted 03/02/17 Date: 02/28/2017 10:14:00 AM From: Heather Seay CCS, CCDS Admit Date: 02/23/2017 4:11:00 PM Patient Name: Vipin Moreno Visit Number: [id number] Discharge Date: Dr. Brad George: 62 yo male admitted with bleeding from his throat area, currently being treated with chemotherapy for carcinoma of the right tonsil. 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 COPD. Current smoker. Clinical Indicators: Dysphagia, weight loss, difficulty maintaining nutrition. PEG tube previously inserted. Labs: Total Protein 6.0, Albumin 3.3 Current BMI: 19.4, 18.5 per nutritional assessment, 86% of ideal body weight. Treatment: Increase nutrients, Daily weights, Monitor I/O, Gastric feeding, IV fluid bolus, IV Mag Sulf. Consults: Dietitian, Pulmonary, Oncology, ENT In your professional opinion, can you please clarify if these findings signify one of the following conditions? Mild Protein Malnutrition Mild Protein-Calorie Malnutrition Moderate Protein Malnutrition Moderate Protein-Calorie Malnutrition Severe Protein Malnutrition Severe Protein-Calorie Malnutrition Malnutrition following GI surgery (has PEG tube) Other condition, please specify Unable to determine Please document in your progress notes and discharge summary in order to capture severity of illness and risk of mortality. Include clinical findings that support your diagnosis. FYI: Press F11 to launch patient chart. LA
[2017-03-02 11:51] LABS: Glucose,Whole Blood 123 mg/dL (75-99)
[2017-03-02] MEDS: SODIUM CHLORIDE 0.9% 1,000 ML IV SCH (14:56)
[2017-03-02 18:15] LABS: Glucose,Whole Blood 153 mg/dL (75-99)
--- NOTE | 2017-03-02 22:27 | PN ---
DATE OF SERVICE: 03/01/2017 CHIEF COMPLAINT: Tracheostomy with carcinoma of the tonsil and hemorrhage. HISTORY OF PRESENT ILLNESS: This gentleman continues to do fairly well. He is not particularly comfortable, but he is getting used to the trach and has been trying to handle the secretions. PHYSICAL EXAM: He has occasional rales and rhonchi bilaterally. Abdomen is soft and non-tender. IMPRESSION: Carcinoma of the tonsil with hemorrhage, status post tracheostomy. PLAN: Continue to follow with Oncology and ENT until he is able to be discharged. LA
--- NOTE | 2017-03-02 22:48 | PN ---
DATE OF SERVICE: 03/02/2017 CHIEF COMPLAINT: Carcinoma of the tonsil. HISTORY OF PRESENT ILLNESS: This gentleman is stable and there has been on interval change. PHYSICAL EXAM: His chest is fairly clear. He still has copious secretions from his tracheostomy. Cardiac exam is normal. IMPRESSION: 1. Carcinoma of the tonsil. 2. Status post tracheostomy. 3. Status post hemorrhage from tonsillar carcinoma. PLAN: Continue with current program, but he wants to be DNR, and this will be enacted. LA
[2017-03-03] MEDS: PIPERACILLIN-TAZOBACTAM 3.375 GM in DEXTROSE/WATER 1 50ML.BAG IVPB SCH ×3 (00:27→15:05)
[2017-03-03] MEDS: INSULIN LISPRO (humaLOG) 300 UNIT/3 ML VIAL SQ SCH ×4 (00:32→17:04)
[2017-03-03 00:33] LABS: Glucose,Whole Blood 120 mg/dL (75-99)
[2017-03-03] MEDS: MORPHINE SULFATE 2 MG/ML SYRINGE IV PRN ×7 (00:34→21:51)
[2017-03-03 05:54] LABS: Glucose,Whole Blood 131 mg/dL (75-99)
--- NOTE | 2017-03-03 06:35 | PN ---
DATE OF SERVICE: 03/01/2017 CHIEF COMPLAINT: Tracheostomy with CA of the tonsil and hemorrhage. HISTORY OF PRESENT ILLNESS: This gentleman continues to do fairly well. He is not particularly comfortable, but he is getting use to the trach and has been trying to handle the secretions. PHYSICAL EXAM: He has occasional rales and rhonchi bilaterally. Abdomen is soft and nontender. IMPRESSION: Cancer of the tonsil with hemorrhage, status post tracheostomy. PLAN: Continue to follow with oncology and ENT until he is able to be discharged. LA
--- NOTE | 2017-03-03 07:38 | PN ---
DATE OF SERVICE: 03/02/2017 CHIEF COMPLAINT: CA of the tonsil. HISTORY OF PRESENT ILLNESS: This gentleman is stable and there has been no interval change. PHYSICAL EXAM: His chest is fairly clear. He still has copious secretions from his tracheostomy. Cardiac exam is normal. IMPRESSION: 1. Cancer of the tonsil. 2. Status post tracheostomy. 3. Status post hemorrhage from tonsillar carcinoma. PLAN: Continue with current program, but he wants to be a DNR and this will be ( ). SHAYD
[2017-03-03] MEDS: IPRATROPIUM-ALBUTEROL 3 ML NEB INHALATION SCH ×4 (08:30→20:44)
[2017-03-03] MEDS: PANTOPRAZOLE 40 MG/10 ML VIAL IV SCH (08:32)
[2017-03-03 11:31] LABS: Glucose,Whole Blood 158 mg/dL (75-99)
[2017-03-03 14:48] VITALS: BMI 18.9
[2017-03-03] MEDS: SODIUM CHLORIDE 0.9% 1,000 ML IV SCH (15:54)
[2017-03-03 17:02] LABS: Glucose,Whole Blood 119 mg/dL (75-99)
[2017-03-03] MEDS: MORPHINE ORAL SOLN 20 MG/1 ML ORAL SYRINGE PO PRN (17:30)
[2017-03-04] MEDS: MORPHINE SULFATE 2 MG/ML SYRINGE IV PRN ×4 (00:15→07:02)
[2017-03-04] MEDS: PIPERACILLIN-TAZOBACTAM 3.375 GM in DEXTROSE/WATER 1 50ML.BAG IVPB SCH ×4 (00:16→23:39)
[2017-03-04] MEDS: INSULIN LISPRO (humaLOG) 300 UNIT/3 ML VIAL SQ SCH ×4 (00:24→18:05)
[2017-03-04 00:28] LABS: Glucose,Whole Blood 124 mg/dL (75-99)
[2017-03-04 06:51] LABS: Glucose,Whole Blood 131 mg/dL (75-99)
[2017-03-04] MEDS: PANTOPRAZOLE 40 MG/10 ML VIAL IV SCH (08:28)
[2017-03-04] MEDS: IPRATROPIUM-ALBUTEROL 3 ML NEB INHALATION SCH ×4 (09:14→19:09)
[2017-03-04] MEDS: MORPHINE ORAL SOLN 20 MG/1 ML ORAL SYRINGE PO PRN ×4 (11:13→23:51)
[2017-03-04 11:45] LABS: Glucose,Whole Blood 140 mg/dL (75-99)
--- NOTE | 2017-03-04 16:00 | P.PN ---
Subjective Principal diagnosis: Patient seen and evaluated examined during the rounds this patient is seen while covering for Dr. Barbosa, patient has a PEG tube through which he is getting to feed he has a tracheostomy he is on 28% trach collar on specific questioning he denies any chest pain mildly or shortness of breath is present his sputum is clear. Respiratory secretions, he remains on broad-spectrum antibiotics and supportive care Objective - Vital Signs Vital signs: Vital Signs Temp 98.4 F 03/04/17 07:00 Pulse 93 03/04/17 15:32 Resp 18 03/04/17 12:16 BP 119/61 03/04/17 07:00 Pulse Ox 100 03/04/17 15:23 Intake & Output 03/03/17 03/04/17 03/04/17 18:59 06:59 18:59 Intake Total 90 115 Output Total 275 Balance -185 115 Weight 47 kg 50 kg Intake: IV 40 80 Sodium Chloride 0.9% 1, 40 80 000 ml @ 10 mls/hr IV . Q24H MARYANNE Rx#:[id number] Intake, IV Titration 50 35 Amount Piperacillin-Tazobactam 3 50 .375 gm In Dextrose/Water 1 50ml.bag @ 12.5 mls/hr IVPB Q8HR MARYANNE Rx#: [id number] Sodium Chloride 0.9% 1, 35 000 ml @ 10 mls/hr IV . Q24H MARYANNE Rx#:[id number] Output: Urine 275 Other: Voiding Method Urinal Urinal # Voids 1 - Exam Thin, frail, cachectic, malnourished, in no respiratory distress. Head exam was generally normal. There was no scleral icterus or corneal arcus. Mucous membranes were moist. The patient has a tracheostomy tube in place which is a # 8 fenestrated Shiley tracheostomy tube. Neck shows some asymmetry with swelling and firmness along the superior cervical area on the right probably originating from the tonsillar bed. No lymphadenopathy. The overlying skin is discolored related to previous radiation therapy. Neck is supple. The patient is edentulous. Unable to fully open up his mouth. Posterior oropharyngeal examination shows irregular soft tissue, tonsillar bed and posterior hypopharynx of the right. Lungs are diminished breath sounds bilaterally. Scattered rhonchi. Cardiac exam revealed the PMI to be normally situated and sized. The rhythm was regular and no extrasystoles were noted during several minutes of auscultation. The first and second heart sounds were normal and physiologic splitting of the second heart sound was noted. There were no murmurs , rubs, clicks, or gallops.Abdominal exam revealed normal bowel sounds. The abdomen was soft, non-tender, and without masses, organomegaly, or appreciable enlargement of the abdominal aorta. PEG tube site is clean dry and intact Examination of the extremities revealed easily palpable radial, femoral and pedal pulses. There was no cyanosis, clubbing or edema. 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 Status post radiation therapy currently undergoing systemic chemotherapy 2 acute bleeding from the retromolar trigone which was involved with squamous cell carcinoma. The patient was treated with radiation therapy and he was currently undergoing systemic chemotherapy. There was concern of his ability to maintain airway patency and there was concern of recurrent bleed. For that reason, a tracheostomy tube was inserted by ENT and the patient has a #8 Shiley tracheostomy tube, fenestrated. The surgery was done without any complications. 3 severe COPD 4 acute tracheal bronchitis suspected with excess amount of foul smell from his tracheostomy tube. Could be also an infected necrotic tumor within the posterior oropharynx and retromolar trigone area. CAT scan of the neck was done earlier. No evidence of any abscess formation. Sputum sample was positive for Klebsiella oxytoca, beta-hemolytic strep group C, Haemophilus influenza. He remains on Zosyn. 5 dysphagia secondary to above currently receiving enteral feeding through PEG tube 6 nephrolithiasis with previous history of hydronephrosis 7 history of alcoholism/smoker 8 hyperglycemia, we'll start insulin/care coverage 9 enteral feeding for nutritional support through a PEG tube. 10 cachexia Overall overall plan is to continue antibiotic supportive care and continue breathing treatments and pulmonary toilet was initiated arrangement transferred to a to extended care facility
[2017-03-04 17:17] LABS: Glucose,Whole Blood 111 mg/dL (75-99)
[2017-03-04] MEDS: SODIUM CHLORIDE 0.9% 1,000 ML IV SCH (22:32)
[2017-03-05] MEDS: INSULIN LISPRO (humaLOG) 300 UNIT/3 ML VIAL SQ SCH ×3 (02:22→11:58)
[2017-03-05 06:34] LABS: Glucose,Whole Blood 153 mg/dL (75-99)
[2017-03-05 07:56] LABS: Glucose,Whole Blood 108 mg/dL (75-99)
[2017-03-05] MEDS: IPRATROPIUM-ALBUTEROL 3 ML NEB INHALATION SCH ×2 (08:14→11:22)
[2017-03-05 08:25] VITALS: BP 130/65; RESP 16; TEMP 98.2
[2017-03-05] MEDS: PANTOPRAZOLE 40 MG/10 ML VIAL IV SCH (08:25)
[2017-03-05] MEDS: PIPERACILLIN-TAZOBACTAM 3.375 GM in DEXTROSE/WATER 1 50ML.BAG IVPB SCH (08:25)
[2017-03-05] MEDS: MORPHINE ORAL SOLN 20 MG/1 ML ORAL SYRINGE PO PRN (10:05)
--- NOTE | 2017-03-05 11:34 | P.DS ---
Providers Date of admission: 02/23/17 16:11 Expected date of discharge: 03/05/17 Attending physician: Brad George Consults: 02/23/17 16:11 Consult Physician Stat Consulting Provider: Apple Garcia Consult Reason/Comments: Acute blood loss anemia, hemorrhagic shock, SCC Do you want consulting provider notified?: Already Contacted Consult Physician Stat Consulting Provider: Ravindra Nelson Consult Reason/Comments: S anemia, hemorrhagic shock, bleeding SCC Do you want consulting provider notified?: Already Contacted 02/25/17 11:49 Consult Physician Routine Consulting Provider: Prakash Ramirez Consult Reason/Comments: squamous cell carcinoma of the larnyx Do you want consulting provider notified?: Yes Primary care physician: Brad George [facility] Course: A 62-year-old male patient who presented to the emergency department this morning because of cough and also copious amount of bright red blood. 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 He presented to the hospital approximately 3 months ago with difficulty in swallowing and weight loss, unintentional. He is a heavy smoker. The patient had also voice change. ENT evaluation was done and the patient was found to have ulcerative lesion of the right tonsillar area with a mass of the oropharyngeal space on the right suspicious for malignancy. Furthermore, a CAT scan of the neck was done and showed extensive ulceration of the right tonsillar bed with involvement of the floor of the mouth and extending to the right pterygoid muscle down to the right hypopharynx with mass effect on the epiglottis. There was also involvement of the false vocal cord on the right. The mass did invade the carotid space.. The patient was seen by hematology oncology and radiation therapy. A PEG tube was inserted for nutritional support. The patient completed radiation therapy. He was also started on systemic chemotherapy. This morning, the patient acutely had massive amount of blood being coughed. No epistaxis. No previous history of hemoptysis. Bleeding is felt to be the cancerous area involving the right tonsillar bed. The patient was cough and a large quantities of clots and similar pieces were extracted from his oropharynx. In the [facility] department his initial pulse ox was 75%. He was hypotensive and tachycardic. He was unable to fully open up his mouth due to radiation-induced scarring/fibrosis and contractures. He is edentulous. The tonsillar bed is quite irregular. There is no active bleeding with a visible vessel on inspection. At the time of my a evaluation the patient was not having any active bleeding. He was however having on and off coughing would bring up of loose liquidy saliva and mucus material. The patient has not been on any blood thinners. No coagulopathy. No anticoagulation. A CAT scan of the neck was repeated and it showed that there is extensive inflammatory change in the bilateral greater maxillary sinuses, mastoid air cells show inflammatory change in the right, ethmoids show inflammatory changes, the airway was patent and a epiglottis was mildly thickened. There was an abnormal fluid collection that was seen on a previous examination and prominence of the base of the tongue on the right soft tissue and these findings were seen to have resolved. As such there was some improvement of the soft tissue abnormality and possible some necrotic focus seen within the area. Possibilities of ulceration of the tonsillar and meningeal mucosal space versus tumor was raised by the radiologist. In any rate , the patient will be admitted to the hospital for further monitoring. ENT evaluation will be requested on an emergent basis. I'm even considering a tracheostomy tube insertion on this patient to protect his airway and securities and airway should events like this occur. He is being given a unit of packed RBC for now. His hemodynamics is stable. Quite weak and cachectic. The voice is extremely hoarse and unable to swallow, receiving enteral feeding through PEG tube. No fever. No change in mental status. During the patient's stay he continued to be on trach collar and nutrition via PEG tube his shortness of breath had improved. He'll be discharged on broad-spectrum antibiotics and morphine back to the extended care facility. Pertinent Studies: chest xray Procedures: Microlaryagoscopy with tracheostomy. Patient Condition at Discharge: Poor Plan - Discharge Summary New Discharge Prescriptions: New Amoxic-Pot Clav 875-125Mg [Augmentin 875-125] 1 each PO Q12HR #14 tab Ipratropium-Albuterol Nebulize [Duoneb 0.5 mg-3 mg/3 ml Soln] 3 ml INHALATION RT-QID neb MORPHINE ORAL SOLN 20mg/mL [Roxanol Oral Soln Conc 20MG/ML] 2.5 mg PO Q3HR PRN #1 bottle PRN Reason: pain Discontinued Morphine Sulfate [Morphine Sulfate Oral Solution] 2.5 mg PO Q6H PRN PRN Reason: Pain Discharge Medication List Amoxic-Pot Clav 875-125Mg [Augmentin 875-125] 1 each PO Q12HR #14 tab 03/05/17 [ Rx] Ipratropium-Albuterol Nebulize [Duoneb 0.5 mg-3 mg/3 ml Soln] 3 ml INHALATION RT -QID neb 03/05/17 [Rx] MORPHINE ORAL SOLN 20mg/mL [Roxanol Oral Soln Conc 20MG/ML] 2.5 mg PO Q3HR PRN # 1 bottle 03/05/17 [Rx] Follow up Appointment(s)/Referral(s): Prakash Ramirez MD [STAFF PHYSICIAN] - 03/11/17 9:15 am Brad George MD [Primary Care Provider] - 1-2 days Discharge Disposition: TRANSFER TO SNF/ECF
[2017-03-05 11:40] LABS: Glucose,Whole Blood 127 mg/dL (75-99)
[2017-03-05 11:42] VITALS: PULSE 80
[2017-03-05] MEDS ORDERED: AMOXIC-POT CLAV 875-125MG 1 EACH TAB PO SCH (21:00)
[2017-03-07 08:05] LABS: Glucose,Whole Blood 114 mg/dL (75-99)
--- NOTE | 2017-03-07 10:27 | CDI ---
In responding to this query, please exercise your independent professional judgment. The [facility] Coding Staff and Clinical Documentation Specialists appreciate your assistance in clarifying documentation, maintaining compliance with coding guidelines, accurately documenting patients condition and capturing severity of illness. The fact that a question is asked does not imply that any particular answer is desired or expected. Communication forms are a method of clarifying documentation and are not made part of the Legal Health Record. Thank you in advance for your clarification. Last Revision, May 2015 Alex Gaines [address] [place] [address] Documentation Clarification Form Date: 03/07/2017 10:23:00 AM From: Heather Seay CCS, CCDS Admit Date: 02/23/2017 4:11:00 PM Patient Name: Vipin Moreno Visit Number: [id number] Discharge Date: 03/05/2017 Dr. Patrice Puga: 62 yo male admitted with bleeding from his throat area, currently being treated with chemotherapy for carcinoma of the right tonsil. 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 COPD. Current smoker. Clinical Indicators: Dysphagia, weight loss, difficulty maintaining nutrition. PEG tube previously inserted. Labs: Total Protein 6.0, Albumin 3.3 Current BMI: 19.4, 18.5 per nutritional assessment, 86% of ideal body weight. Treatment: Increase nutrients, Daily weights, Monitor I/O, Gastric feeding, IV fluid bolus, IV Mag Consults: Dietitian, Pulmonary, Oncology, ENT In your professional opinion, can you please clarify if these findings signify one of the following conditions? Mild Protein Malnutrition Mild Protein-Calorie Malnutrition Moderate Protein Malnutrition Moderate Protein-Calorie Malnutrition Severe Protein Malnutrition Severe Protein-Calorie Malnutrition Malnutrition following GI surgery (has PEG tube) Malnutrition Other condition, please specify Unable to determine Please document in your progress notes and discharge summary in order to capture severity of illness and risk of mortality. Include clinical findings that support your diagnosis. FYI: Press F11 to launch patient chart. [email or web address]
== END 2017-03-05 14:51 | DRG 11 ==
LOC: EC 11:34 → 6ICU 16:11 → 5ONC 02-25 18:38
PROVIDERS: ADMIT Family Medicine; ATTEND Family Medicine
PROC: 30230N1 Transfusion of Nonautologous Red Blood Cells into Peripheral Vein, Open Approach (ICD-10-PCS; 2017-02-23)
PROC: 0B110F4 Bypass Trachea to Cutaneous with Tracheostomy Device, Open Approach (ICD-10-PCS; principal; 2017-02-24 12:00)
PROC: 0CJS8ZZ Inspection of Larynx, Via Natural or Artificial Opening Endoscopic (ICD-10-PCS; 2017-02-24 12:00)
DX: C09.9 Malignant neoplasm of tonsil, unspecified (principal); R57.8 Other shock; J96.21 Acute and chronic respiratory failure with hypoxia; R64 Cachexia; E44.0 Moderate protein-calorie malnutrition; E46 Unspecified protein-calorie malnutrition; Z93.0 Tracheostomy status; J44.0 Chronic obstructive pulmonary disease with (acute) lower respiratory infection; D62 Acute posthemorrhagic anemia; R13.19 Other dysphagia; Z93.1 Gastrostomy status; J38.02 Paralysis of vocal cords and larynx, bilateral; T17.998A Other foreign object in respiratory tract, part unspecified causing other injury, initial encounter; R04.1 Hemorrhage from throat; K13.5 Oral submucous fibrosis; M43.6 Torticollis; F10.21 Alcohol dependence, in remission; N20.0 Calculus of kidney; G89.29 Other chronic pain; F17.200 Nicotine dependence, unspecified, uncomplicated; J20.9 Acute bronchitis, unspecified; R73.9 Hyperglycemia, unspecified; M19.91 Primary osteoarthritis, unspecified site; Z92.3 Personal history of irradiation; Z92.21 Personal history of antineoplastic chemotherapy; Z87.442 Personal history of urinary calculi; Y84.2 Radiological procedure and radiotherapy as the cause of abnormal reaction of the patient, or of later complication, without mention of misadventure at the time of the procedure
CPT/HCPCS: 36415; 70491; 71010; 80048; 80053; 81001; 83036; 83735; 84100; 85025; 85610; 85730; 86850; 86900; 86901; 86920; 87070; 87077; 87186; 87205; 93005; 94640; 94760; 96374; 96375; 99291; 99292